=== PATIENT | male | born 1985 | race African-American/Black ===

== ENCOUNTER 2017-07-17 15:53 | Emergency (ER) | payer SELFPAY ==
[2017-07-17] MEDS: DIPHTH,PERTUSS(ACELL),TET TOX 0.5 ML DISP.SYRIN. VAX IM (16:38)
== END 2017-07-17 16:45 | disposition home or self-care (01) ==
LOC: ER 15:53
DX: S00.462A Insect bite (nonvenomous) of left ear, initial encounter (principal); Z91.018 Allergy to other foods; W57.XXXA Bitten or stung by nonvenomous insect and other nonvenomous arthropods, initial encounter; Y93.89 Activity, other specified; Y92.89 Other specified places as the place of occurrence of the external cause; Y99.8 Other external cause status
CPT/HCPCS: 90471; 90715; 99283

== ENCOUNTER 2018-09-24 13:08 | Emergency (ER) | payer BC ==
[~2018-09-24] VITALS: Ht 180.3 cm; Wt 107.0 kg
[~2018-09-24 13:08] MED LIST: CLIN300C8 PO; DIPH25CA58 PO; FAMO20TA5 PO; PRED50TA PO; TRAM50TA PO
--- NOTE | 2018-09-24 13:41 | PHYS DOC ---
Past Medical History Past Medical History: Gallstones Past Surgical History: Cholecystectomy Additional Past Surgical Histo: STOMACH SX Alcohol Use: Rarely Drug Use: None Adult General Chief Complaint Chief Complaint: ABDOMINAL PAIN HPI HPI Patient is a 33 year old male presents to the ED complaining of diffuse abdominal pain �4 days ago. Patient states he's had abdominal pain since last . Describes the pain as sharp. Rates the pain as 6 out of 10. States that he's had vomiting today at work. 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 States he was sent to the ED for further evaluation. History of cholecystectomy and colitis in the past. Denies diarrhea, constipation, fever, chest pain, shortness of breath, back pain or flank pain. Review of Systems Review of Systems Constitutional: Denies fever or chills [] Eyes: Denies change in visual acuity, redness, or eye pain [] HENT: Denies nasal congestion or sore throat [] Respiratory: Denies cough or shortness of breath [] Cardiovascular: No additional information not addressed in HPI [] GI: Complains of abdominal pain, nausea and vomiting. Denies bloody stools or diarrhea [] : Denies dysuria or hematuria [] Musculoskeletal: Denies back pain or joint pain [] Integument: Denies rash or skin lesions [] Neurologic: Denies headache, focal weakness or sensory changes [] All other systems were reviewed and found to be within normal limits, except as documented in this note. Current Medications Current Medications Current Medications Medications (Trade) Dose Ordered Sig/Yun Start Time Stop Time Status Last Admin Dose Admin Info (CONTRAST GIVEN -- Rx MONITORING) 1 each PRN DAILY PRN 09/24/18 14:30 09/26/18 14:29 Iohexol (Omnipaque 300 Mg/ml) 75 ml 1X ONCE 09/24/18 14:15 09/24/18 14:16 DC 09/24/18 14:49 75 ML Morphine Sulfate (Morphine Sulfate) 4 mg 1X ONCE 09/24/18 13:45 09/24/18 13:46 DC 09/24/18 13:52 4 MG Ondansetron HCl (Zofran) 4 mg 1X ONCE 09/24/18 13:45 09/24/18 13:46 DC 09/24/18 13:52 4 MG Allergies Allergies Allergies Coded Allergies Type Severity Reaction Last Updated Verified strawberry Allergy Intermediate 10/03/15 No Physical Exam Physical Exam Constitutional: Well developed, well nourished, no acute distress, non-toxic appearance. [] HENT: Normocephalic, atraumatic Neck: Normal range of motion, no tenderness, supple, no stridor. [] Cardiovascular:Heart rate regular rhythm, no murmur [] Lungs & Thorax: Bilateral breath sounds clear to auscultation [] Abdomen: Bowel sounds normal, soft, mild diffuse abdominal tenderness, no masses, no pulsatile masses. [] Skin: Warm, dry, no erythema, no rash. [] Back: No tenderness, no CVA tenderness. [] Extremities: No tenderness, no cyanosis, no clubbing, ROM intact, no edema. [] Neurologic: Alert and oriented X 3, normal motor function, normal sensory function, no focal deficits noted. [] Psychologic: Affect normal, judgement normal, mood normal. [] Current Patient Data Vital Signs Vital Signs Date Time Temp Pulse Resp B/P (MAP) Pulse Ox O2 Delivery O2 Flow Rate FiO2 09/24/18 16:17 84 16 141/85 (103) 97 Room Air 09/24/18 13:08 97.2 97.2 Lab Values Laboratory Tests Test 09/24/18 13:50 White Blood Count 8.0 x10^3/uL (4.0-11.0) Red Blood Count 5.64 x10^6/uL (4.30-5.70) Hemoglobin 15.5 g/dL (13.0-17.5) Hematocrit 46.5 % (39.0-53.0) Mean Corpuscular Volume 82 fL (79-100) Mean Corpuscular Hemoglobin 27 pg (25-35) Mean Corpuscular Hemoglobin Concent 33 g/dL (31-37) Red Cell Distribution Width 18.0 % (11.5-14.5) H Platelet Count 218 x10^3/uL (140-400) Neutrophils (%) (Auto) 61 % (31-73) Lymphocytes (%) (Auto) 27 % (24-48) Monocytes (%) (Auto) 8 % (0-9) Eosinophils (%) (Auto) 3 % (0-3) Basophils (%) (Auto) 0 % (0-3) Neutrophils # (Auto) 4.9 x10^3/uL (1.8-7.7) Lymphocytes # (Auto) 2.1 x10^3/uL (1.0-4.8) Monocytes # (Auto) 0.7 x10^3/uL (0.0-1.1) Eosinophils # (Auto) 0.3 x10^3/uL (0.0-0.7) Basophils # (Auto) 0.0 x10^3/uL (0.0-0.2) Sodium Level 144 mmol/L (136-145) Potassium Level 3.7 mmol/L (3.5-5.1) Chloride Level 107 mmol/L (98-107) Carbon Dioxide Level 27 mmol/L (21-32) Anion Gap 10 (6-14) Blood Urea Nitrogen 11 mg/dL (8-26) Creatinine 1.2 mg/dL (0.7-1.3) Estimated GFR (Cockcroft-Gault) 84.4 BUN/Creatinine Ratio 9 (6-20) Glucose Level 97 mg/dL (70-99) Calcium Level 8.9 mg/dL (8.5-10.1) Total Bilirubin 0.4 mg/dL (0.2-1.0) Aspartate Amino Transferase (AST) 27 U/L (15-37) Alanine Aminotransferase (ALT) 71 U/L (16-63) H Alkaline Phosphatase 71 U/L (46-116) Total Protein 7.5 g/dL (6.4-8.2) Albumin 3.8 g/dL (3.4-5.0) Albumin/Globulin Ratio 1.0 (1.0-1.7) Lipase 80 U/L (73-393) Laboratory Tests 09/24/18 13:50 Laboratory Tests 09/24/18 13:50 EKG EKG [] Radiology/Procedures Radiology/Procedures []PROCEDURE: CT ABD PELV W/ IV CONTRST ONLY CT study abdomen and pelvis with contrast Clinical indications: Diffuse abdominal pain. TECHNIQUE: After IV infusion of 75 cc of Omnipaque 300, helical CT scanning of the abdomen and pelvis was performed. No GI contrast was administered. This may decrease the sensitivity to detect GI tract pathology. PQRS compliance Statement One or more of the following individualized dose reduction techniques were utilized for this study: 1. Automated exposure control 2. Adjustment of the mA and/or kV according to patient size 3. Use of iterative reconstruction technique COMPARISON: None available. FINDINGS: The liver and spleen and pancreas are normal. The gallbladder surgically absent. No extra hepatic biliary ductal dilatation is seen. No adrenal mass is evident. Nonobstructing stone of the lower pole of the right kidney is seen measuring 3 mm. No hydronephrosis or hydroureter or ureteral stone or renal mass is seen. No focal aneurysmal dilatation of the abdominal aorta is seen. No enlarged abdominal or pelvic lymphadenopathy is evident. Urinary bladder is not abnormally distended. The appendix and terminal ileum are unremarkable. No obstructive bowel pattern is evident. There is mild wall thickening of small bowel and colon which may be seen with enterocolitis. No pneumatosis intestinalis is seen. No lung base consolidation is evident. No lytic process is seen. IMPRESSION: There is mild wall thickening of the small bowel and colon which may be seen with enterocolitis if there are clinical findings of such. No other acute abnormality of the abdomen or pelvis. Course & Med Decision Making Course & Med Decision Making Pertinent Labs and Imaging studies reviewed. (See chart for details) []Discussed lab and imaging findings with patient. Patient has a history of colitis and states it was self limiting in the past. Patient's pain improved in the ED. On reexamination, abdomen is soft nontender nondistended. No peritoneal signs. Tolerating by mouth. Discussed symptomatic treatment and follow-up with Danny Clay this week. Provided contact information/education. Discussed reasons to return to the ED. Patient understands and agrees with plan. Dragon Disclaimer Dragon Disclaimer This electronic medical record was generated, in whole or in part, using a voice recognition dictation system. Departure Departure Impression: Primary Impression: Enterocolitis Disposition: 01 HOME, SELF-CARE Condition: IMPROVED Referrals: NO PCP (PCP) DEMETRA GUZMÁN MD Patient Instructions: Colitis Scripts Dicyclomine Hcl (DICYCLOMINE HCL) 10 Mg Capsule 1 CAP PO TID, #10 CAP 0 Refills Prov: JULIET JACOBSON 09/24/18 Ondansetron Hcl (ZOFRAN) 4 Mg Tablet 1 TAB PO Q6HRS, #20 TAB Prov: JULIET JACOBSON 09/24/18 JULIET JACOBSON Sep 24, 2018 13:41
[2018-09-24] MEDS ORDERED: MORPHINE SULFATE 4 MG/ML VIAL. IV ONE (13:45)
[2018-09-24] MEDS ORDERED: ONDANSETRON PF 4 MG/2 ML VIAL. IV ONE (13:45)
[2018-09-24 13:55] LABS: BASO % 0 % (0-3); EOS # 0.3 x10^3/uL (0.0-0.7); EOS % 3 % (0-3); HEMATOCRIT 46.5 % (39.0-53.0); HEMOGLOBIN 15.5 g/dL (13.0-17.5); LYMPH # 2.1 x10^3/uL (1.0-4.8); LYMPH % 27 % (24-48); MEAN CORPUSCULAR HEMOGLOBIN 27 pg (25-35); MEAN CORPUSCULAR HGB CONC 33 g/dL (31-37); MEAN CORPUSCULAR VOLUME 82 fL (79-100); MONO # 0.7 x10^3/uL (0.0-1.1); MONO % 8 % (0-9); NEUT # 4.9 x10^3/uL (1.8-7.7); NEUT % 61 % (31-73); PLATELET COUNT 218 x10^3/uL (140-400); RED BLOOD COUNT 5.64 x10^6/uL (4.30-5.70)
[2018-09-24 14:09] LABS: CALCIUM 8.9 mg/dL (8.5-10.1); CREATININE 1.2 mg/dL (0.7-1.3); GFR 84.4; POTASSIUM 3.7 mmol/L (3.5-5.1)
[2018-09-24 14:15] LABS: ALBUMIN 3.8 g/dL (3.4-5.0); TOTAL BILIRUBIN 0.4 mg/dL (0.2-1.0); TOTAL PROTEIN 7.5 g/dL (6.4-8.2)
[2018-09-24] MEDS ORDERED: IOHEXOL 300 MG/ML 100ML VIAL. IV ONE (14:15)
[2018-09-24] MEDS ORDERED: CONTRAST GIVEN. MC PRN (14:30)
--- NOTE | 2018-09-24 15:29 | RAD ---
CT study abdomen and pelvis with contrast Clinical indications: Diffuse abdominal pain. TECHNIQUE: After IV infusion of 75 cc of Omnipaque 300, helical CT scanning of the abdomen and pelvis was performed. No GI contrast was administered. This may decrease the sensitivity to detect GI tract pathology. PQRS compliance Statement One or more of the following individualized dose reduction techniques were utilized for this study: 1. Automated exposure control 2. Adjustment of the mA and/or kV according to patient size 3. Use of iterative reconstruction technique COMPARISON: None available. FINDINGS: The liver and spleen and pancreas are normal. The gallbladder surgically absent. No extra hepatic biliary ductal dilatation is seen. No adrenal mass is evident. Nonobstructing stone of the lower pole of the right kidney is seen measuring 3 mm. No hydronephrosis or hydroureter or ureteral stone or renal mass is seen. No focal aneurysmal dilatation of the abdominal aorta is seen. No enlarged abdominal or pelvic lymphadenopathy is evident. Urinary bladder is not abnormally distended. The appendix and terminal ileum are unremarkable. No obstructive bowel pattern is evident. There is mild wall thickening of small bowel and colon which may be seen with enterocolitis. No pneumatosis intestinalis is seen. No lung base consolidation is evident. No lytic process is seen. IMPRESSION: There is mild wall thickening of the small bowel and colon which may be seen with enterocolitis if there are clinical findings of such. No other acute abnormality of the abdomen or pelvis. Electronically signed by: Kyrie Sagastume MD (09/24/2018 3:26 PM) [facility]
[2018-09-24 16:17] VITALS: BP 141/85
[2018-09-24] MEDS ORDERED: ONDA4TAB7 PO (16:43)
[2018-09-24] MEDS ORDERED: DICY10CA3 PO (16:43)
== END 2018-09-24 16:51 | disposition home or self-care (01) ==
LOC: ER 13:08
DX: K52.9 Noninfective gastroenteritis and colitis, unspecified (principal); Z90.49 Acquired absence of other specified parts of digestive tract; Z91.018 Allergy to other foods
CPT/HCPCS: 36415; 74177; 80053; 83690; 85025; 96374; 96375; 99285; J2270; J2405; Q9967

== ENCOUNTER → 2018-10-22 | Day surgery (SDC) | payer BC ==
[~2018-10-22] MED LIST changes: +DICY10CA3 PO; +IV RINGERS,LACTATED 1000ML 1,000 ML IV ONE; +ONDA4TAB7 PO; +PROPOFOL 20 ML IV ONE
--- NOTE | 2018-10-22 14:30 | PDOC4 ---
PROCEDURE Procedure EGD/biopsies Indication: Epigastric pain Meds: per anesthesia Findings: E--Grade A reflux at 42 cm. G--Pyloric deformity. Mostly-healed benign ulcer in pre-pyloric area atop fold. Biopsies re: H.pylori. D--Normal to second portion Paz. well. IMP: ,nearly healed. Mild reflux. REC: PPI daily Await path. Resume other meds, diet. F/u in 2 weeks. DAKOTA LAWRENCE MD Oct 22, 2018 14:30
[2018-10-22 15:04] VITALS: BP 106/58
--- NOTE | 2018-10-24 13:08 | PATHOLOGY ---
[facility] Accession Number: [id number] . 01 Material submitted: . stomach - ANTRAL BX . 01 Clinical history: . Abnormal CT, abdominal pain . 02 Diagnosis: Gastric biopsy, antrum: - Active chronic gastritis, moderate to marked, with Helicobacter organisms identified. (JPM:layne; 10/24/2018) S 10/24/2018 0855 Local . 02 Comment: Sections of the gastric antral biopsy show moderate to marked active chronic inflammation. A properly controlled immunoperoxidase stain for Helicobacter reveals numerous Helicobacter organisms. There is no evidence of malignancy. (JPM:layne; 10/24/2018) . . Special stain performed: Immunoperoxidase stain for Helicobacter . 02 Electronically signed: . Reed Degroot MD, Pathologist NPI- [id number] . 01 Gross description: . The specimen is received in formalin, labeled "Dakota Zhao, antral biopsy". Received is a segment of pale lezama soft tissue measuring 0.5 cm in maximum dimensions. The specimen is submitted entirely in cassette A1. ([facility]; 10/23/2018) QA/QA 10/23/2018 1752 Local . 02 Pathologist provided ICD-10: K29.50, B96.81 . 02 CPT . 938290, P35806 Specimen Comment: A courtesy copy of this report has been sent to Specimen Comment: [phone], . Specimen Comment: Report sent to / DR CARTER Performed at: 01 [facility] [address], [place], [place] [id number] MD Gustavo Fiore MD Phone: [phone] Performed at: 02 [facility] [address] [place], [place] [id number] MD Reed Degroot MD Phone: [phone]
== END | disposition home or self-care (01) ==
LOC: SURG 13:30
PROVIDERS: ATTEND Internal Medicine Gastroenterology
DX: K29.30 Chronic superficial gastritis without bleeding (principal); B96.81 Helicobacter pylori [H. pylori] as the cause of diseases classified elsewhere; K21.0 Gastro-esophageal reflux disease with esophagitis; Z79.899 Other long term (current) drug therapy; Z91.018 Allergy to other foods; Z90.49 Acquired absence of other specified parts of digestive tract
CPT/HCPCS: 43239; 88305; 88342; J2704

== ENCOUNTER 2018-12-29 17:00 | Emergency (ER) | payer BC ==
[~2018-12-29] VITALS: Ht 180.3 cm; Wt 115.7 kg
[~2018-12-29 17:00] MED LIST changes: -IV RINGERS,LACTATED 1000ML 1,000 ML IV ONE; -PROPOFOL 20 ML IV ONE
[2018-12-29] MEDS ORDERED: methylPREDNISolone SOD SUCC PF 125 MG/2 ML VIAL. IV STA (17:43)
--- NOTE | 2018-12-29 17:47 | PHYS DOC ---
Past Medical History Past Medical History: No Pertinent History Past Surgical History: Cholecystectomy Additional Past Surgical Histo: STOMACH SX Alcohol Use: Rarely Drug Use: None Adult General Chief Complaint Chief Complaint: SORE THROAT HPI HPI Patient is a 33 year old year old male presents to the ER with left sided face pain and sore throat that started last night he states she's been having sore throat for a couple days. Pain as 7 out of 10 in severity and sharp. States is difficult to swallow. Review of Systems Review of Systems Constitutional: Denies fever or chills [] Eyes: Denies change in visual acuity, redness, or eye pain [] HENT: Reports sore throat Respiratory: Denies cough or shortness of breath [] Cardiovascular: No additional information not addressed in HPI [] GI: Denies abdominal pain, nausea, vomiting, bloody stools or diarrhea [] : Denies dysuria or hematuria [] Musculoskeletal: Denies back pain or joint pain [] Integument: Denies rash or skin lesions [] Neurologic: Denies headache, focal weakness or sensory changes [] Endocrine: Denies polyuria or polydipsia [] Complete systems were reviewed and found to be within normal limits, except as documented in this note. Current Medications Current Medications Current Medications Medications (Trade) Dose Ordered Sig/Yun Start Time Stop Time Status Last Admin Dose Admin Clindamycin Phosphate 50 ml @ 100 mls/hr 1X STAT 12/29/18 19:32 12/29/18 20:01 Info (CONTRAST GIVEN -- Rx MONITORING) 1 each PRN DAILY PRN 12/29/18 18:15 12/31/18 18:14 Iohexol (Omnipaque 300 Mg/ml) 70 ml 1X ONCE 12/29/18 18:15 12/29/18 18:16 DC 12/29/18 18:43 70 ML Methylprednisolone Sodium Succinate (SOLU-Medrol 125MG VIAL) 125 mg 1X STAT 12/29/18 17:43 12/29/18 17:47 DC 12/29/18 18:15 125 MG Morphine Sulfate (Morphine Sulfate) 5 mg 1X ONCE 12/29/18 18:30 12/29/18 18:31 DC 12/29/18 18:32 5 MG Sodium Chloride 1,000 ml @ 1,000 mls/hr 1X STAT 12/29/18 19:48 12/29/18 20:47 UNV Allergies Allergies Allergies Coded Allergies Type Severity Reaction Last Updated Verified strawberry Allergy Intermediate 10/22/18 No Physical Exam Physical Exam Constitutional: Well developed, well nourished, no acute distress, non-toxic appearance. [] HENT: Normocephalic, atraumatic, bilateral external ears normal, oropharynx moist, unable to visualize back of throat, nose normal, patient unable to open mouth fully. Eyes: PERRLA, EOMI, conjunctiva normal, no discharge. [] Neck: Normal range of motion, tenderness L side. Cardiovascular:Heart rate regular rhythm, no murmur [] Lungs & Thorax: Bilateral breath sounds clear to auscultation [] Abdomen: Bowel sounds normal, soft, no tenderness, no masses, no pulsatile masses. [] Skin: Warm, dry, no erythema, no rash. [] Back: No tenderness, no CVA tenderness. [] Extremities: No tenderness, no cyanosis, no clubbing, ROM intact, no edema. [] Neurologic: Alert and oriented X 3, normal motor function, normal sensory function, no focal deficits noted. [] Psychologic: Affect normal, judgement normal, mood normal. [] Current Patient Data Vital Signs Vital Signs Date Time Temp Pulse Resp B/P (MAP) Pulse Ox O2 Delivery O2 Flow Rate FiO2 12/29/18 17:37 98.5 96 18 138/93 (108) 99 Room Air 98.5 Lab Values Laboratory Tests Test 12/29/18 18:00 White Blood Count 11.6 x10^3/uL (4.0-11.0) H Red Blood Count 5.62 x10^6/uL (4.30-5.70) Hemoglobin 15.0 g/dL (13.0-17.5) Hematocrit 45.1 % (39.0-53.0) Mean Corpuscular Volume 80 fL (79-100) Mean Corpuscular Hemoglobin 27 pg (25-35) Mean Corpuscular Hemoglobin Concent 33 g/dL (31-37) Red Cell Distribution Width 17.7 % (11.5-14.5) H Platelet Count 224 x10^3/uL (140-400) Neutrophils (%) (Auto) 58 % (31-73) Lymphocytes (%) (Auto) 27 % (24-48) Monocytes (%) (Auto) 11 % (0-9) H Eosinophils (%) (Auto) 3 % (0-3) Basophils (%) (Auto) 1 % (0-3) Neutrophils # (Auto) 6.7 x10^3/uL (1.8-7.7) Lymphocytes # (Auto) 3.2 x10^3/uL (1.0-4.8) Monocytes # (Auto) 1.3 x10^3/uL (0.0-1.1) H Eosinophils # (Auto) 0.4 x10^3/uL (0.0-0.7) Basophils # (Auto) 0.1 x10^3/uL (0.0-0.2) Sodium Level 140 mmol/L (136-145) Potassium Level 3.9 mmol/L (3.5-5.1) Chloride Level 105 mmol/L (98-107) Carbon Dioxide Level 26 mmol/L (21-32) Anion Gap 9 (6-14) Blood Urea Nitrogen 10 mg/dL (8-26) Creatinine 1.0 mg/dL (0.7-1.3) Estimated GFR (Cockcroft-Gault) 104.1 BUN/Creatinine Ratio 10 (6-20) Glucose Level 81 mg/dL (70-99) Calcium Level 9.2 mg/dL (8.5-10.1) Total Bilirubin 0.5 mg/dL (0.2-1.0) Aspartate Amino Transferase (AST) 31 U/L (15-37) Alanine Aminotransferase (ALT) 64 U/L (16-63) H Alkaline Phosphatase 73 U/L (46-116) C-Reactive Protein, Quantitative 33.2 mg/L (0-3.3) H Total Protein 7.9 g/dL (6.4-8.2) Albumin 3.8 g/dL (3.4-5.0) Albumin/Globulin Ratio 0.9 (1.0-1.7) L Laboratory Tests 12/29/18 18:00 Laboratory Tests 12/29/18 18:00 EKG EKG [] Radiology/Procedures Radiology/Procedures [][facility] [address] [place] [address] IMAGING REPORT Signed PATIENT: DAKOTA JAVIER LACCOUNT: [id number] : 1985 LOCATION: ER AGE: 33 SEX: M EXAM STATUS: REG ER ORD. PHYSICIAN: DAKOTA GARAY APRN REASON: sore throat, L sided neck swelling, concern for tonsillar abscess PROCEDURE: CT SOFT TISSUE NECK W/CONTRAST Exam: CT neck with contrast INDICATION: Sore throat, left-sided neck swelling TECHNIQUE: Sequential axial images through the neck obtained following the administration of 70 mL of Omni 300 IV contrast. Sagittal and coronal reformatted images were reconstructed from the axial data and reviewed. Comparisons: None FINDINGS: Visualized intracranial structures are unremarkable. Visualized portions of the paranasal sinuses and mastoid air cells are well-pneumatized. Cervical vasculature is patent. There is enlargement of the palatine tonsils bilaterally. There is a 1.0 cm hypoattenuating fluid collection with peripheral enhancement along the anterior aspect of the left palatine tonsil. There is effacement of the left oropharyngeal airway secondary to edema. Parapharyngeal edema is noted predominantly throughout the left neck surrounding the lingula and palatine tonsils. Visualized portions of the thyroid are unremarkable. Salivary glands are within normal limits. Several prominent and mildly enlarged upper cervical lymph nodes are noted bilaterally, larger on the left. Visualized lung apices are clear. No suspicious osseous lesions or acute fractures. IMPRESSION: 1. Enlargement of the palatine tonsils bilaterally greater on the left with a 1.0 cm hypoattenuating peripherally enhancing fluid collection at the anterior aspect of the left down to the tonsil favored represent peritonsillar abscess, seen best on series 2 image 56. 2. Several prominent bilateral upper cervical lymph nodes, likely reactive to the above process. Exposure: One or more of the following in the visualized dose reduction techniques were utilized for this examination: 1. Automated exposure control 2. Adjustment of the MA and/or KV according to patient size 3. Use of iterative of reconstructive technique Electronically signed by: Lili Mary MD (12/29/2018 7:16 PM) [id number] DICTATED and SIGNED BY: LILI MARY MD DATE: 12/29/181915 Course & Med Decision Making Course & Med Decision Making Pertinent Labs and Imaging studies reviewed. (See chart for details) Concern for abscess. Will get labs, CT, and steroids. CT shows 1.0 cm left peritonsiller abscess. Will order clindamycin. Discussed with patient who agrees to Transfer as we do not have ENT at [facility]. He request [facility]. Discussed with transfer center at 1944. [facility] transfer called back at [address] Shady De La Vega for an ED to ED transfer. Dragon Disclaimer Dragon Disclaimer This electronic medical record was generated, in whole or in part, using a voice recognition dictation system. Departure Departure Impression: Primary Impression: Peritonsillar abscess Disposition: 05 TRANSFER OTHER ([facility]) Condition: STABLE Referrals: FEROZ CARTER MD (PCP) DAKOTA GARAY APRN Dec 29, 2018 17:47
[2018-12-29 18:07] LABS: BASO # 0.1 x10^3/uL (0.0-0.2); BASO % 1 % (0-3); EOS # 0.4 x10^3/uL (0.0-0.7); EOS % 3 % (0-3); HEMATOCRIT 45.1 % (39.0-53.0); LYMPH # 3.2 x10^3/uL (1.0-4.8); LYMPH % 27 % (24-48); MEAN CORPUSCULAR HEMOGLOBIN 27 pg (25-35); MEAN CORPUSCULAR HGB CONC 33 g/dL (31-37); MEAN CORPUSCULAR VOLUME 80 fL (79-100); MONO # 1.3 x10^3/uL (0.0-1.1); MONO % 11 % (0-9); NEUT # 6.7 x10^3/uL (1.8-7.7); NEUT % 58 % (31-73); PLATELET COUNT 224 x10^3/uL (140-400); RED BLOOD COUNT 5.62 x10^6/uL (4.30-5.70); RED CELL DISTRIBUTION WIDTH 17.7 % (11.5-14.5); WHITE BLOOD COUNT 11.6 x10^3/uL (4.0-11.0)
[2018-12-29] MEDS ORDERED: CONTRAST GIVEN. MC PRN (18:15)
[2018-12-29] MEDS ORDERED: IOHEXOL 300 MG/ML 100ML VIAL. IV ONE (18:15)
[2018-12-29 18:16] LABS: CALCIUM 9.2 mg/dL (8.5-10.1); GFR 104.1; POTASSIUM 3.9 mmol/L (3.5-5.1)
[2018-12-29 18:22] LABS: ALBUMIN 3.8 g/dL (3.4-5.0); ALBUMIN/GLOBULIN RATIO 0.9 (1.0-1.7); C-REACTIVE PROTEIN 33.2 mg/L (0-3.3); TOTAL BILIRUBIN 0.5 mg/dL (0.2-1.0); TOTAL PROTEIN 7.9 g/dL (6.4-8.2)
[2018-12-29] MEDS ORDERED: MORPHINE SULFATE 10 MG/ML VIAL. IV ONE ×3 (18:30→20:08)
--- NOTE | 2018-12-29 19:18 | RAD ---
Exam: CT neck with contrast INDICATION: Sore throat, left-sided neck swelling TECHNIQUE: Sequential axial images through the neck obtained following the administration of 70 mL of Omni 300 IV contrast. Sagittal and coronal reformatted images were reconstructed from the axial data and reviewed. Comparisons: None FINDINGS: Visualized intracranial structures are unremarkable. Visualized portions of the paranasal sinuses and mastoid air cells are well-pneumatized. Cervical vasculature is patent. There is enlargement of the palatine tonsils bilaterally. There is a 1.0 cm hypoattenuating fluid collection with peripheral enhancement along the anterior aspect of the left palatine tonsil. There is effacement of the left oropharyngeal airway secondary to edema. Parapharyngeal edema is noted predominantly throughout the left neck surrounding the lingula and palatine tonsils. Visualized portions of the thyroid are unremarkable. Salivary glands are within normal limits. Several prominent and mildly enlarged upper cervical lymph nodes are noted bilaterally, larger on the left. Visualized lung apices are clear. No suspicious osseous lesions or acute fractures. IMPRESSION: 1. Enlargement of the palatine tonsils bilaterally greater on the left with a 1.0 cm hypoattenuating peripherally enhancing fluid collection at the anterior aspect of the left down to the tonsil favored represent peritonsillar abscess, seen best on series 2 image 56. 2. Several prominent bilateral upper cervical lymph nodes, likely reactive to the above process. Exposure: One or more of the following in the visualized dose reduction techniques were utilized for this examination: 1. Automated exposure control 2. Adjustment of the MA and/or KV according to patient size 3. Use of iterative of reconstructive technique Electronically signed by: Lili Yen MD (12/29/2018 7:16 PM) [facility]
[2018-12-29] MEDS ORDERED: CLINDAMYCIN 600MG PREMIX 50 ML IV STA (19:32)
[2018-12-29] MEDS ORDERED: IV NORMAL SALINE 1000ML BAG 1,000 ML IV STA (19:48)
[2018-12-29 20:30] VITALS: BP 144/76
== END 2018-12-29 21:31 | disposition short-term general hospital (02) ==
LOC: ER 17:00
DX: J36 Peritonsillar abscess (principal); Z79.899 Other long term (current) drug therapy; Z90.49 Acquired absence of other specified parts of digestive tract
CPT/HCPCS: 36415; 70491; 80053; 85025; 86140; 96374; 96375; 96376; 99285; J2270; J2930; J7030; Q9967

== ENCOUNTER 2019-04-27 07:31 | Inpatient (IN) | payer BC ==
[2019-04-27] VITALS (17 sets, daily range): BP systolic 97–193; BP diastolic 60–108
[~2019-04-27] VITALS: Ht 180.3 cm; Wt 108.2 kg
[2019-04-27] MEDS ORDERED: HEPARIN for IV BOLUS 10,000 UNIT/10 ML VIAL. ONE ×3 (07:45→12:08)
[2019-04-27] MEDS ORDERED: fentaNYL PF VIAL 100 MCG/2 ML VIAL ONE ×2 (08:09→11:14)
--- NOTE | 2019-04-27 11:00 | NUR ---
Nursing: Pt to ICU pby bed from cath laboratory technician. IABP in place at right groin. Site with small amount of blood on dressing, 3+ pedal pulse, right foot warm to touch. Pt oriented to ICU. Placed on monitor. Denies pain. Instructed pt to lay flat and not bend right leg. Pt acknowledges understanding. Will continue to monitor closely
--- NOTE | 2019-04-27 11:00 | NUR ---
Pt c/o tongue being swollen. Upon inspection, blood noted to be on tongue and teeth as if he bit his tongue. Explained to patient this probably happened when he was defibrillated in medical laboratory scientist. Addendum: 04/28/19 at 1142 by JOHN SALAMANCA RN RN Amended: Links added.
[2019-04-27] MEDS ORDERED: MIDAZOLAM HCL/PF 5 MG/5 ML VIAL. ONE (11:14)
[2019-04-27] MEDS ORDERED: DEXTROSE 5% IV ONE (11:15)
[2019-04-27] MEDS ORDERED: AMIODARONE IV ONE (11:15)
[2019-04-27] MEDS ORDERED: LIDOCAINE 1% Multi-Dose 20 ML VIAL. ONE (11:16)
[2019-04-27] MEDS ORDERED: IODIXANOL 320 MG/ML 100 ML VIAL. ONE (11:16)
[2019-04-27] MEDS ORDERED: ASPIRIN 325 MG TABLET PO ONE (11:30)
[2019-04-27] MEDS ORDERED: NITROGLYCERIN PREMIX 250 ML IV ONE (11:30)
[2019-04-27] MEDS ORDERED: LIDOCAINE 1% Multi-Dose 20 ML VIAL. INJ ONE (11:30)
[2019-04-27] MEDS ORDERED: TICAGRELOR 90 MG TABLET. PO ONE (11:30)
[2019-04-27] MEDS ORDERED: BIVALIRUDIN 250 MG VIAL. IV ONE ×2 (11:30→11:45)
[2019-04-27] MEDS ORDERED: HEPARIN 25,000UTS/250ML PREMIX 250 ML IV PRN (11:30)
[2019-04-27] MEDS ORDERED: fentaNYL PF VIAL 100 MCG/2 ML VIAL IV ONE (11:30)
[2019-04-27] MEDS: AMIODARONE 450 MG in IV DEXTROSE 5% 250 ML IV PRN ×2 (11:30→18:00)
[2019-04-27] MEDS ORDERED: ONDANSETRON PF 4 MG/2 ML VIAL. IVP ONE (11:30)
[2019-04-27] MEDS ORDERED: IODIXANOL 320 MG/ML 100 ML VIAL. IART ONE (11:30)
[2019-04-27] MEDS ORDERED: MIDAZOLAM HCL/PF 5 MG/5 ML VIAL. IV ONE (11:30)
--- NOTE | 2019-04-27 11:41 | RAD ---
CHEST AP ONLY History: Chest pain Comparison: October 22, 2012 Findings: Low lung volumes. No consolidation or pleural effusion. Normal heart size. No pneumothorax. Impression: 1. No acute cardiopulmonary process. Electronically signed by: Sriram Dillard DO (04/27/2019 11:39 AM) [id number]
[2019-04-27] MEDS ORDERED: CONTRAST GIVEN. MC PRN (12:30)
--- NOTE | 2019-04-27 13:00 | NUR ---
Pt uncomfortable from laying flat in bed. Pt repositioned with wedges. Call to Dr. South for pain medication order.
[2019-04-27 13:12] LABS: PROTHROMBIN TIME PATIENT 11.4 SEC (11.7-14.0)
[2019-04-27 13:15] LABS: BASO # 0.1 x10^3/uL (0.0-0.2); BASO % 1 % (0-3); EOS # 0.2 x10^3/uL (0.0-0.7); EOS % 2 % (0-3); HEMATOCRIT 45.9 % (39.0-53.0); HEMOGLOBIN 15.1 g/dL (13.0-17.5); LYMPH # 5.6 x10^3/uL (1.0-4.8); LYMPH % 41 % (24-48); MEAN CORPUSCULAR HEMOGLOBIN 27 pg (25-35); MEAN CORPUSCULAR HGB CONC 33 g/dL (31-37); MEAN CORPUSCULAR VOLUME 81 fL (79-100); MONO % 7 % (0-9); NEUT # 6.9 x10^3/uL (1.8-7.7); NEUT % 50 % (31-73); PLATELET COUNT 275 x10^3/uL (140-400); RED BLOOD COUNT 5.64 x10^6/uL (4.30-5.70); WHITE BLOOD COUNT 13.9 x10^3/uL (4.0-11.0)
[2019-04-27 13:50] LABS: ALBUMIN 3.9 g/dL (3.4-5.0); CREATININE 0.9 mg/dL (0.7-1.3); DIRECT BILIRUBIN 0.1 mg/dL (0.0-0.2); GFR 116.9; TOTAL BILIRUBIN 0.2 mg/dL (0.2-1.0); TOTAL PROTEIN 7.5 g/dL (6.4-8.2)
[2019-04-27 13:51] LABS: POTASSIUM 3.2 mmol/L (3.5-5.1)
--- NOTE | 2019-04-27 14:31 | PDOC1 ---
History and Physical Date of Admission Date of Admission DATE: 04/27/19 TIME: 14:26 History of Present Illness History of Present Illness Mr. Zhao came in the AM with acute chest pain, cruishing and sudden chest pain EKG showed marked ST elevation on v1 to v3, EKG reviewed in ER with Dr. 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 Past Medical History Cardiovascular: HTN Family History Family History: Coronary Artery Disease (2 family members at young ages, fa ther OR at age 32) [facility] History: [facility], [facility], ) Social History ALCOHOL: social Drugs: None Current Problem List Problem List Problems Medical Problems: (1) STEMI (ST elevation myocardial infarction) Status: Acute Current Medications Current Medications Current Medications Amiodarone HCl 75 mg/Dextrose 51.5 ml @ 309 mls/hr 1X ONCE IV Last administered on 04/27/19at 11:15; Start 04/27/19 at 11:15; Stop 04/27/19 at 11:24; Status DC Amiodarone HCl 450 mg/Dextrose 259 ml @ 33 mls/hr CONT PRN IV SEE I/O RECORD Last administered on 04/27/19at 11:30; Start 04/27/19 at 11:15 Fentanyl Citrate (Fentanyl 2ml Vial) 100 mcg STK-MED ONCE .ROUTE ; Start 04/27/19 at 11:14; Stop 04/27/19 at 11:14; Status DC Midazolam HCl (Versed) 5 mg STK-MED ONCE .ROUTE ; Start 04/27/19 at 11:14; Stop 04/27/19 at 11:14; Status DC Iodixanol (Visipaque 320) 100 ml STK-MED ONCE .ROUTE ; Start 04/27/19 at 11:16; Stop 04/27/19 at 11:16; Status DC Lidocaine HCl (Lidocaine 1% 20ml Vial) 20 ml STK-MED ONCE .ROUTE ; Start 04/27/19 at 11:16; Stop 04/27/19 at 11:16; Status DC Heparin Sodium/ Sodium Chloride 1,000 ml @ As Directed STK-MED ONCE .ROUTE ; Start 04/27/19 at 11:16; Stop 04/27/19 at 11:17; Status DC Heparin Sodium/ Sodium Chloride (HEPARIN for ARTERIAL LINE FLUSH) 1,000 unit 1X ONCE IART Last administered on 04/27/19 11:30; Start 04/27/19 at 11:30; Stop 04/27/19 at 12:48; Status DC Heparin Sodium/ Sodium Chloride (HEPARIN for ARTERIAL LINE FLUSH) 1,000 unit 1X ONCE IART Last administered on 04/27/19at 11:30; Start 04/27/19 at 11:30; Stop 04/27/19 at 12:48; Status DC Midazolam HCl (Versed) 5 mg 1X ONCE IV Last administered on 04/27/19 08:34; Start 04/27/19 at 11:30; Stop 04/27/19 at 12:48; Status DC Fentanyl Citrate (Fentanyl 2ml Vial) 100 mcg 1X ONCE IV Last administered on 04/27/19 08:34; Start 04/27/19 at 11:30; Stop 04/27/19 at 12:48; Status DC Iodixanol (Visipaque 320) 100 ml 1X ONCE IART Last administered on 04/27/19 11:30; Start 04/27/19 at 11:30; Stop 04/27/19 at 12:48; Status DC Bivalirudin (Angiomax) 250 mg 1X ONCE IV Last administered on 04/27/19at 09:04; Start 04/27/19 at 11:30; Stop 04/27/19 at 12:48; Status DC Ticagrelor (Brilinta) 180 mg 1X ONCE PO Last administered on 04/27/19 11:30; Start 04/27/19 at 11:30; Stop 04/27/19 at 12:48; Status DC Aspirin (Finn Aspirin) 325 mg 1X ONCE PO Last administered on 04/27/19 11:30; Start 04/27/19 at 11:30; Stop 04/27/19 at 12:48; Status DC Lidocaine HCl (Lidocaine 1% 20ml Vial) 20 ml 1X ONCE INJ Last administered on 04/27/19 11:30; Start 04/27/19 at 11:30; Stop 04/27/19 at 12:48; Status DC Heparin Sodium (Porcine) (Heparin 5,000 Units/1,000ml NS) 5,000 unit 1X ONCE IV Last administered on 04/27/19at 10:30; Start 04/27/19 at 11:30; Stop 04/27/19 at 12:48; Status DC Nitroglycerin/ Dextrose 250 ml @ 0 mls/hr 1X ONCE IV Last administered on 04/27/19at 08:44; Start 04/27/19 at 11:30; Stop 04/27/19 at 12:48; Status DC Heparin Sodium/ Dextrose 250 ml @ 10 mls/hr CONT PRN IV SEE I/O RECORD Last administered on 04/27/19at 10:15; Start 04/27/19 at 11:30 Dopamine HCl/ Dextrose 250 ml @ 18.835 mls/ hr 1X ONCE IV Last administered on 04/27/19at 09:25; Start 04/27/19 at 11:30; Stop 04/28/19 at 00:46 Ondansetron HCl (Zofran) 4 mg 1X ONCE IVP Last administered on 04/27/19at 09:46; Start 04/27/19 at 11:30; Stop 04/27/19 at 12:48; Status DC Heparin Sodium (Porcine) (Heparin Sodium) 10,000 unit STK-MED ONCE .ROUTE ; Start 04/27/19 at 11:40; Stop 04/27/19 at 11:40; Status DC Bivalirudin (Angiomax) 250 mg 1X ONCE IV Last administered on 04/27/19at 09:40; Start 04/27/19 at 11:45; Stop 04/27/19 at 12:48; Status DC Heparin Sodium (Porcine) (Heparin Sodium) 10,000 unit STK-MED ONCE .ROUTE ; Start 04/27/19 at 12:08; Stop 04/27/19 at 12:08; Status DC Info (CONTRAST GIVEN -- Rx MONITORING) 1 each PRN DAILY PRN MC SEE COMMENTS; Start 04/27/19 at 12:30; Stop 04/29/19 at 12:29 Fentanyl Citrate (Fentanyl 2ml Vial) 25 mcg PRN Q4HRS PRN IV PAIN; Start 04/27/19 at 13:15 Active Scripts Active Reported No Known Medications Prior To Admisstion (Info) Each 1 Each MC NA Allergies Allergies: Coded Allergies: strawberry (Unverified Allergy, Intermediate, 10/22/18) ROS Review of System lethargic after cath, back pain, just got fentanyl for pain General: YES: Malaise Respiratory: No: Cough, Hemoptysis, Orthopnea, Pleuritic Pain, Shortness of breath, SOB with excertion, Sputum Changes, Stridor, Tachypnea, Wheezing, Other Cardiovascular: yes Chest Pain Gastrointestinal: No Nausea, No Vomiting, No Abdominal Pain, No Diarrhea, No Constipation, No Melena, No Hematochezia, No Other Genitourinary: No Dysuria, No Frequency, No Incontinence, No Hematuria, No Retention, No Discharge, No Urgency, No Pain, No Flank Pain, No Other, No , No , No , No , No , No , No Musculoskeletal: Yes Joint Stiffness Neurological: No Behavorial Changes, No Bowel/Bladder ControlChng, No Confusion, No Dizziness, No Gait Disturbance, No Headaches, No Impaired Coord/balance, No Memory Loss, No Numbness/Tingling, No Seizures, No Speech Problems, No Tremors, No Visual Changes, No Weakness, No Other Skin: Yes Dry Skin Physical Exam General: Cooperative, mild distress HEENT: PERRLA, EOMI Lungs: Clear to auscultation Heart: other (LVAD super loud) Abdomen: Normal bowel sounds (obese), Soft Extremities: No cyanosis, No edema Skin: No rashes, No significant lesion Neuro: Strength at 5/5 X4 ext, Normal tone, Sensation intact Psych/Mental Status: Mood NL Vitals Vitals Vital Signs Date Time Temp Pulse Resp B/P (MAP) Pulse Ox O2 Delivery O2 Flow Rate FiO2 04/27/19 12:30 101 20 106/70 (82) 96 Nasal Cannula 4.0 04/27/19 10:45 97.2 97.2 Labs Labs Laboratory Tests Test 04/27/19 07:40 04/27/19 07:45 White Blood Count 13.9 x10^3/uL (4.0-11.0) Red Blood Count 5.64 x10^6/uL (4.30-5.70) Hemoglobin 15.1 g/dL (13.0-17.5) Hematocrit 45.9 % (39.0-53.0) Mean Corpuscular Volume 81 fL (79-100) Mean Corpuscular Hemoglobin 27 pg (25-35) Mean Corpuscular Hemoglobin Concent 33 g/dL (31-37) Red Cell Distribution Width 18.0 % (11.5-14.5) Platelet Count 275 x10^3/uL (140-400) Neutrophils (%) (Auto) 50 % (31-73) Lymphocytes (%) (Auto) 41 % (24-48) Monocytes (%) (Auto) 7 % (0-9) Eosinophils (%) (Auto) 2 % (0-3) Basophils (%) (Auto) 1 % (0-3) Neutrophils # (Auto) 6.9 x10^3/uL (1.8-7.7) Lymphocytes # (Auto) 5.6 x10^3/uL (1.0-4.8) Monocytes # (Auto) 1.0 x10^3/uL (0.0-1.1) Eosinophils # (Auto) 0.2 x10^3/uL (0.0-0.7) Basophils # (Auto) 0.1 x10^3/uL (0.0-0.2) Prothrombin Time 11.4 SEC (11.7-14.0) Prothromb Time International Ratio 0.9 (0.8-1.1) Activated Partial Thromboplast Time 26 SEC (24-38) Sodium Level 145 mmol/L (136-145) Potassium Level 3.2 mmol/L (3.5-5.1) Chloride Level 105 mmol/L (98-107) Carbon Dioxide Level 24 mmol/L (21-32) Anion Gap 16 (6-14) Blood Urea Nitrogen 14 mg/dL (8-26) Creatinine 0.9 mg/dL (0.7-1.3) Estimated GFR (Cockcroft-Gault) 116.9 Glucose Level 140 mg/dL (70-99) Calcium Level 9.0 mg/dL (8.5-10.1) Total Bilirubin 0.2 mg/dL (0.2-1.0) Direct Bilirubin 0.1 mg/dL (0.0-0.2) Aspartate Amino Transf (AST/SGOT) 28 U/L (15-37) Alanine Aminotransferase (ALT/SGPT) 63 U/L (16-63) Alkaline Phosphatase 65 U/L (46-116) Troponin I Quantitative 0.076 ng/mL (0.000-0.055) Total Protein 7.5 g/dL (6.4-8.2) Albumin 3.9 g/dL (3.4-5.0) Laboratory Tests Test 04/27/19 07:40 04/27/19 07:45 White Blood Count 13.9 x10^3/uL (4.0-11.0) Red Blood Count 5.64 x10^6/uL (4.30-5.70) Hemoglobin 15.1 g/dL (13.0-17.5) Hematocrit 45.9 % (39.0-53.0) Mean Corpuscular Volume 81 fL (79-100) Mean Corpuscular Hemoglobin 27 pg (25-35) Mean Corpuscular Hemoglobin Concent 33 g/dL (31-37) Red Cell Distribution Width 18.0 % (11.5-14.5) Platelet Count 275 x10^3/uL (140-400) Neutrophils (%) (Auto) 50 % (31-73) Lymphocytes (%) (Auto) 41 % (24-48) Monocytes (%) (Auto) 7 % (0-9) Eosinophils (%) (Auto) 2 % (0-3) Basophils (%) (Auto) 1 % (0-3) Neutrophils # (Auto) 6.9 x10^3/uL (1.8-7.7) Lymphocytes # (Auto) 5.6 x10^3/uL (1.0-4.8) Monocytes # (Auto) 1.0 x10^3/uL (0.0-1.1) Eosinophils # (Auto) 0.2 x10^3/uL (0.0-0.7) Basophils # (Auto) 0.1 x10^3/uL (0.0-0.2) Prothrombin Time 11.4 SEC (11.7-14.0) Prothromb Time International Ratio 0.9 (0.8-1.1) Activated Partial Thromboplast Time 26 SEC (24-38) Sodium Level 145 mmol/L (136-145) Potassium Level 3.2 mmol/L (3.5-5.1) Chloride Level 105 mmol/L (98-107) Carbon Dioxide Level 24 mmol/L (21-32) Anion Gap 16 (6-14) Blood Urea Nitrogen 14 mg/dL (8-26) Creatinine 0.9 mg/dL (0.7-1.3) Estimated GFR (Cockcroft-Gault) 116.9 Glucose Level 140 mg/dL (70-99) Calcium Level 9.0 mg/dL (8.5-10.1) Total Bilirubin 0.2 mg/dL (0.2-1.0) Direct Bilirubin 0.1 mg/dL (0.0-0.2) Aspartate Amino Transf (AST/SGOT) 28 U/L (15-37) Alanine Aminotransferase (ALT/SGPT) 63 U/L (16-63) Alkaline Phosphatase 65 U/L (46-116) Troponin I Quantitative 0.076 ng/mL (0.000-0.055) Total Protein 7.5 g/dL (6.4-8.2) Albumin 3.9 g/dL (3.4-5.0) VTE Prophylaxis Ordered VTE Prophylaxis Devices: No VTE Pharmacological Prophylaxi: Yes Assessment/Plan Assessment/Plan STEMI LAD 100%, stented, on LVAD, cont care in ICU time > 38 minueSHINE Jenkins MD Apr 27, 2019 14:31
[2019-04-27] MEDS ORDERED: IV NORMAL SALINE 1000ML BAG 1,000 ML IV SCH (17:00)
[2019-04-27] MEDS: fentaNYL PF VIAL 100 MCG/2 ML VIAL IV PRN ×4 (17:24→21:42)
--- NOTE | 2019-04-27 22:15 | NUR ---
Dr South phoned unit, requesting update on pt. update given, new orders received and noted. will pass on in report, will continue to closely monitor.
--- NOTE | 2019-04-27 22:19 | EKG ---
[facility] [address] [place] [address] Test Date: 2019-04-27 Test Time: 07:56:10 Pat Name: DAKOTA JAVIER Department: Room: 112 1 Gender: M Clinical Documentation Nurse: : 1985 Requested By: PAO LOVING Order Number: [id number] Reading MD: Measurements Intervals [place] Rate: 90 P: 49 [place]: 154 QRS: 86 QRSD: 100 T: 40 QT: 368 QTc: 454 Interpretive Statements SINUS RHYTHM LEFT ATRIAL ABNORMALITY QRS(T) CONTOUR ABNORMALITY CONSIDER ANTEROSEPTAL INFARCT CONSIDER INFERIOR MYOCARDIAL DAMAGE ST-T ELEVATION, CONSIDER ACUTE ANTERIOR INFARCT ABNORMAL ECG RI6.01 No previous ECG available for comparison
--- NOTE | 2019-04-27 22:19 | EKG ---
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
[2019-04-28] VITALS (24 sets, daily range): BP systolic 103–163; BP diastolic 70–106
[2019-04-28] MEDS: fentaNYL PF VIAL 100 MCG/2 ML VIAL IV PRN ×2 (01:58→10:36)
[2019-04-28 06:52] LABS: ALBUMIN 3.3 g/dL (3.4-5.0); ALBUMIN/GLOBULIN RATIO 1.1 (1.0-1.7); CALCIUM 8.4 mg/dL (8.5-10.1); CREATININE 1.2 mg/dL (0.7-1.3); GFR 83.9; POTASSIUM 3.4 mmol/L (3.5-5.1); TOTAL BILIRUBIN 0.8 mg/dL (0.2-1.0); TOTAL PROTEIN 6.3 g/dL (6.4-8.2)
[2019-04-28 07:08] LABS: BASO # 0.1 x10^3/uL (0.0-0.2); BASO % 0 % (0-3); EOS % 0 % (0-3); HEMATOCRIT 43.2 % (39.0-53.0); HEMOGLOBIN 14.1 g/dL (13.0-17.5); LYMPH # 3.1 x10^3/uL (1.0-4.8); LYMPH % 20 % (24-48); MEAN CORPUSCULAR HEMOGLOBIN 27 pg (25-35); MEAN CORPUSCULAR HGB CONC 33 g/dL (31-37); MEAN CORPUSCULAR VOLUME 81 fL (79-100); MONO # 1.5 x10^3/uL (0.0-1.1); MONO % 10 % (0-9); NEUT # 10.7 x10^3/uL (1.8-7.7); NEUT % 69 % (31-73); PLATELET COUNT 177 x10^3/uL (140-400); RED BLOOD COUNT 5.31 x10^6/uL (4.30-5.70); RED CELL DISTRIBUTION WIDTH 17.8 % (11.5-14.5); WHITE BLOOD COUNT 15.5 x10^3/uL (4.0-11.0)
[2019-04-28 07:10] LABS: CHOLESTEROL/HDL RATIO 4.6
[2019-04-28] MEDS ORDERED: LIDOCAINE 2% 100 MG/5 ML SYRINGE. ONE (09:17)
[2019-04-28] MEDS ORDERED: LIDOCAINE 1% PF 30 ML VIAL. ONE (09:18)
--- NOTE | 2019-04-28 11:01 | NUR ---
Nursing note: IAPB removed by Dr. South. Manual pressure held with hemostasis achieved at 10am. Pt given 25mcg Fentenyl prior to procedure. Pt tolerated well. Right groin site soft with no bleeding. 2+ right pedal pulse. Patient cleaned and linens changed. Will monitor closely.
--- NOTE | 2019-04-28 11:47 | PDOC ---
PROGRESS NOTES Subjective Subjective Patient seen and examined He looks and feels better today. Objective Objective Vital Signs Date Time Temp Pulse Resp B/P (MAP) Pulse Ox O2 Delivery O2 Flow Rate FiO2 04/28/19 11:04 13 96 Room Air 2.0 04/28/19 11:00 80 135/92 (106) 04/28/19 07:00 98.7 98.7 Intake and Output 04/28/19 07:00 Intake Total 2495.5 ml Output Total 2595 ml Balance -99.5 ml Intake Oral 150 ml IV Total 2345.5 ml Output Urine Total 2595 ml Physical Exam Abdomen: Normal bowel sounds Heart: Regular rate Extremities: Normal pulses General: mild distress Lungs: Clear to auscultation Assessment Assessment Problems Medical Problems: (1) STEMI (ST elevation myocardial infarction) Status: Acute 1. STEMI. Large proximally occluded LAD opened yesterday with a 3.0 x 28 drug eluting stent. IABP placed. Has been stable overnight. Peak troponin of 2138. Continuing amio and baseline meds. Will remove IABP this morning. Discussed with the patient. ECHO. 2. HLD. Statin. Comment Review of Relevant I have reviewed the following items turner (where applicable) has been applied. Labs Laboratory Tests Test 04/27/19 07:40 04/27/19 07:45 04/27/19 14:05 04/28/19 06:20 White Blood Count 13.9 x10^3/uL (4.0-11.0) 15.5 x10^3/uL (4.0-11.0) Red Blood Count 5.64 x10^6/uL (4.30-5.70) 5.31 x10^6/uL (4.30-5.70) Hemoglobin 15.1 g/dL (13.0-17.5) 14.1 g/dL (13.0-17.5) Hematocrit 45.9 % (39.0-53.0) 43.2 % (39.0-53.0) Mean Corpuscular Volume 81 fL (79-100) 81 fL (79-100) Mean Corpuscular Hemoglobin 27 pg (25-35) 27 pg (25-35) Mean Corpuscular Hemoglobin Concent 33 g/dL (31-37) 33 g/dL (31-37) Red Cell Distribution Width 18.0 % (11.5-14.5) 17.8 % (11.5-14.5) Platelet Count 275 x10^3/uL (140-400) 177 x10^3/uL (140-400) Neutrophils (%) (Auto) 50 % (31-73) 69 % (31-73) Lymphocytes (%) (Auto) 41 % (24-48) 20 % (24-48) Monocytes (%) (Auto) 7 % (0-9) 10 % (0-9) Eosinophils (%) (Auto) 2 % (0-3) 0 % (0-3) Basophils (%) (Auto) 1 % (0-3) 0 % (0-3) Neutrophils # (Auto) 6.9 x10^3/uL (1.8-7.7) 10.7 x10^3/uL (1.8-7.7) Lymphocytes # (Auto) 5.6 x10^3/uL (1.0-4.8) 3.1 x10^3/uL (1.0-4.8) Monocytes # (Auto) 1.0 x10^3/uL (0.0-1.1) 1.5 x10^3/uL (0.0-1.1) Eosinophils # (Auto) 0.2 x10^3/uL (0.0-0.7) 0.0 x10^3/uL (0.0-0.7) Basophils # (Auto) 0.1 x10^3/uL (0.0-0.2) 0.1 x10^3/uL (0.0-0.2) Prothrombin Time 11.4 SEC (11.7-14.0) Prothromb Time International Ratio 0.9 (0.8-1.1) Activated Partial Thromboplast Time 26 SEC (24-38) Sodium Level 145 mmol/L (136-145) 142 mmol/L (136-145) Potassium Level 3.2 mmol/L (3.5-5.1) 3.4 mmol/L (3.5-5.1) Chloride Level 105 mmol/L (98-107) 108 mmol/L (98-107) Carbon Dioxide Level 24 mmol/L (21-32) 23 mmol/L (21-32) Anion Gap 16 (6-14) 11 (6-14) Blood Urea Nitrogen 14 mg/dL (8-26) 13 mg/dL (8-26) Creatinine 0.9 mg/dL (0.7-1.3) 1.2 mg/dL (0.7-1.3) Estimated GFR (Cockcroft-Gault) 116.9 83.9 Glucose Level 140 mg/dL (70-99) 116 mg/dL (70-99) Calcium Level 9.0 mg/dL (8.5-10.1) 8.4 mg/dL (8.5-10.1) Total Bilirubin 0.2 mg/dL (0.2-1.0) 0.8 mg/dL (0.2-1.0) Direct Bilirubin 0.1 mg/dL (0.0-0.2) Aspartate Amino Transf (AST/SGOT) 28 U/L (15-37) 578 U/L (15-37) Alanine Aminotransferase (ALT/SGPT) 63 U/L (16-63) 160 U/L (16-63) Alkaline Phosphatase 65 U/L (46-116) 62 U/L (46-116) Troponin I Quantitative 0.076 ng/mL (0.000-0.055) 2138.987 ng/mL (0.000-0.055) Total Protein 7.5 g/dL (6.4-8.2) 6.3 g/dL (6.4-8.2) Albumin 3.9 g/dL (3.4-5.0) 3.3 g/dL (3.4-5.0) Heparin Anti-Xa Act, Unfractionated 0.10 IU/mL (0.30-0.70) BUN/Creatinine Ratio 11 (6-20) Albumin/Globulin Ratio 1.1 (1.0-1.7) Triglycerides Level 183 mg/dL (0-150) Cholesterol Level 189 mg/dL (0-200) LDL Cholesterol, Calculated 111 mg/dL (0-100) VLDL Cholesterol, Calculated 37 mg/dL (0-40) Non-HDL Cholesterol Calculated 148 mg/dL (0-129) HDL Cholesterol 41 mg/dL (40-60) Cholesterol/HDL Ratio 4.6 Laboratory Tests Test 04/27/19 14:05 04/28/19 06:20 Heparin Anti-Xa Act, Unfractionated 0.10 IU/mL (0.30-0.70) White Blood Count 15.5 x10^3/uL (4.0-11.0) Red Blood Count 5.31 x10^6/uL (4.30-5.70) Hemoglobin 14.1 g/dL (13.0-17.5) Hematocrit 43.2 % (39.0-53.0) Mean Corpuscular Volume 81 fL (79-100) Mean Corpuscular Hemoglobin 27 pg (25-35) Mean Corpuscular Hemoglobin Concent 33 g/dL (31-37) Red Cell Distribution Width 17.8 % (11.5-14.5) Platelet Count 177 x10^3/uL (140-400) Neutrophils (%) (Auto) 69 % (31-73) Lymphocytes (%) (Auto) 20 % (24-48) Monocytes (%) (Auto) 10 % (0-9) Eosinophils (%) (Auto) 0 % (0-3) Basophils (%) (Auto) 0 % (0-3) Neutrophils # (Auto) 10.7 x10^3/uL (1.8-7.7) Lymphocytes # (Auto) 3.1 x10^3/uL (1.0-4.8) Monocytes # (Auto) 1.5 x10^3/uL (0.0-1.1) Eosinophils # (Auto) 0.0 x10^3/uL (0.0-0.7) Basophils # (Auto) 0.1 x10^3/uL (0.0-0.2) Sodium Level 142 mmol/L (136-145) Potassium Level 3.4 mmol/L (3.5-5.1) Chloride Level 108 mmol/L (98-107) Carbon Dioxide Level 23 mmol/L (21-32) Anion Gap 11 (6-14) Blood Urea Nitrogen 13 mg/dL (8-26) Creatinine 1.2 mg/dL (0.7-1.3) Estimated GFR (Cockcroft-Gault) 83.9 BUN/Creatinine Ratio 11 (6-20) Glucose Level 116 mg/dL (70-99) Calcium Level 8.4 mg/dL (8.5-10.1) Total Bilirubin 0.8 mg/dL (0.2-1.0) Aspartate Amino Transf (AST/SGOT) 578 U/L (15-37) Alanine Aminotransferase (ALT/SGPT) 160 U/L (16-63) Alkaline Phosphatase 62 U/L (46-116) Troponin I Quantitative 2138.987 ng/mL (0.000-0.055) Total Protein 6.3 g/dL (6.4-8.2) Albumin 3.3 g/dL (3.4-5.0) Albumin/Globulin Ratio 1.1 (1.0-1.7) Triglycerides Level 183 mg/dL (0-150) Cholesterol Level 189 mg/dL (0-200) LDL Cholesterol, Calculated 111 mg/dL (0-100) VLDL Cholesterol, Calculated 37 mg/dL (0-40) Non-HDL Cholesterol Calculated 148 mg/dL (0-129) HDL Cholesterol 41 mg/dL (40-60) Cholesterol/HDL Ratio 4.6 Medications Current Medications Amiodarone HCl 75 mg/Dextrose 51.5 ml @ 309 mls/hr 1X ONCE IV Last admi nistered on 04/27/19at 11:15; Start 04/27/19 at 11:15; Stop 04/27/19 at 11:24; Status DC Amiodarone HCl 450 mg/Dextrose 259 ml @ 33 mls/hr CONT PRN IV SEE I/O RECORD Last administered on 04/27/19at 18:00; Start 04/27/19 at 11:15; Stop 04/27/19 at 18:00; Status DC Fentanyl Citrate (Fentanyl 2ml Vial) 100 mcg STK-MED ONCE .ROUTE ; Start 04/27/19 at 11:14; Stop 04/27/19 at 11:14; Status DC Midazolam HCl (Versed) 5 mg STK-MED ONCE .ROUTE ; Start 04/27/19 at 11:14; Stop 04/27/19 at 11:14; Status DC Iodixanol (Visipaque 320) 100 ml STK-MED ONCE .ROUTE ; Start 04/27/19 at 11:16; Stop 04/27/19 at 11:16; Status DC Lidocaine HCl (Lidocaine 1% 20ml Vial) 20 ml STK-MED ONCE .ROUTE ; Start 3/14/20 at 11:16; Stop 04/27/19 at 11:16; Status DC Heparin Sodium/ Sodium Chloride 1,000 ml @ As Directed STK-MED ONCE .ROUTE ; Start 04/27/19 at 11:16; Stop 04/27/19 at 11:17; Status DC Heparin Sodium/ Sodium Chloride (HEPARIN for ARTERIAL LINE FLUSH) 1,000 unit 1X ONCE IART Last administered on 04/27/19at 11:30; Start 04/27/19 at 11:30; Stop 04/27/19 at 12:48; Status DC Heparin Sodium/ Sodium Chloride (HEPARIN for ARTERIAL LINE FLUSH) 1,000 unit 1X ONCE IART Last administered on 04/27/19 11:30; Start 04/27/19 at 11:30; Stop 04/27/19 at 12:48; Status DC Midazolam HCl (Versed) 5 mg 1X ONCE IV Last administered on 04/27/19 08:34; Start 04/27/19 at 11:30; Stop 04/27/19 at 12:48; Status DC Fentanyl Citrate (Fentanyl 2ml Vial) 100 mcg 1X ONCE IV Last administered on 04/27/19at 08:34; Start 04/27/19 at 11:30; Stop 04/27/19 at 12:48; Status DC Iodixanol (Visipaque 320) 100 ml 1X ONCE IART Last administered on 04/27/19 11:30; Start 04/27/19 at 11:30; Stop 04/27/19 at 12:48; Status DC Bivalirudin (Angiomax) 250 mg 1X ONCE IV Last administered on 04/27/19at 09:04; Start 04/27/19 at 11:30; Stop 04/27/19 at 12:48; Status DC Ticagrelor (Brilinta) 180 mg 1X ONCE PO Last administered on 04/27/19 11:30; Start 04/27/19 at 11:30; Stop 04/27/19 at 12:48; Status DC Aspirin (Finn Aspirin) 325 mg 1X ONCE PO Last administered on 04/27/19at 11:30; Start 04/27/19 at 11:30; Stop 04/27/19 at 12:48; Status DC Lidocaine HCl (Lidocaine 1% 20ml Vial) 20 ml 1X ONCE INJ Last administered on 04/27/19at 11:30; Start 04/27/19 at 11:30; Stop 04/27/19 at 12:48; Status DC Heparin Sodium (Porcine) (Heparin 5,000 Units/1,000ml NS) 5,000 unit 1X ONCE IV Last administered on 04/27/19at 10:30; Start 04/27/19 at 11:30; Stop 04/27/19 at 12:48; Status DC Nitroglycerin/ Dextrose 250 ml @ 0 mls/hr 1X ONCE IV Last administered on 04/27/19at 08:44; Start 04/27/19 at 11:30; Stop 04/27/19 at 12:48; Status DC Heparin Sodium/ Dextrose 250 ml @ 10 mls/hr CONT PRN IV SEE I/O RECORD Last administered on 04/27/19at 10:15; Start 04/27/19 at 11:30; Stop 04/28/19 at 03:00; Status DC Dopamine HCl/ Dextrose 250 ml @ 18.835 mls/ hr 1X ONCE IV Last administered on 04/27/19at 09:25; Start 04/27/19 at 11:30; Stop 04/28/19 at 00:46; Status DC Ondansetron HCl (Zofran) 4 mg 1X ONCE IVP Last administered on 04/27/19at 09:46; Start 04/27/19 at 11:30; Stop 04/27/19 at 12:48; Status DC Heparin Sodium (Porcine) (Heparin Sodium) 10,000 unit STK-MED ONCE .ROUTE ; Start 04/27/19 at 11:40; Stop 04/27/19 at 11:40; Status DC Bivalirudin (Angiomax) 250 mg 1X ONCE IV Last administered on 04/27/19at 09:40; Start 04/27/19 at 11:45; Stop 04/27/19 at 12:48; Status DC Heparin Sodium (Porcine) (Heparin Sodium) 10,000 unit STK-MED ONCE .ROUTE ; Start 04/27/19 at 12:08; Stop 04/27/19 at 12:08; Status DC Info (CONTRAST GIVEN -- Rx MONITORING) 1 each PRN DAILY PRN MC SEE COMMENTS; Start 04/27/19 at 12:30; Stop 04/29/19 at 12:29 Fentanyl Citrate (Fentanyl 2ml Vial) 25 mcg PRN Q4HRS PRN IV PAIN Last administered on 04/28/19at 10:36; Start 04/27/19 at 13:15 Sodium Chloride 1,000 ml @ 50 mls/hr Q20H IV Last administered on 04/27/19at 21:42; Start 04/27/19 at 17:00 Lidocaine HCl (Lidocaine HCl 2% Abboject) 100 mg STK-MED ONCE .ROUTE ; Start 04/28/19 at 09:17; Stop 04/28/19 at 09:18; Status DC Lidocaine HCl (Xylocaine 1% Pf 30ml Vial) 30 ml STK-MED ONCE .ROUTE ; Start 04/28/19 at 09:18; Stop 04/28/19 at 09:18; Status DC Active Scripts Active Reported No Known Medications Prior To Admisstion (Info) Each 1 Each NA Vitals/I & O Vital Sign - Last 24 Hours 04/27/19 04/27/19 04/27/19 04/27/19 11:47 12:00 12:30 14:00 Pulse 89 88 101 94 Resp 21 B/P (MAP) 149/68 (95) 106/70 (82) 123/92 (102) Pulse Ox 100 96 96 96 O2 Delivery NonRebreather Mask Nasal Cannula Nasal Cannula Nasal Cannula O2 Flow Rate 15.0 4.0 4.0 4.0 04/27/19 04/27/19 04/27/19 04/27/19 15:00 16:00 16:00 17:00 Temp 97.3 97.3 Pulse 88 94 97 Resp B/P (MAP) 117/76 (90) 138/88 (105) 144/88 (106) O2 Delivery Nasal Cannula Nasal Cannula Nasal Cannula Room Air O2 Flow Rate 2.0 2.0 04/27/19 04/27/19 04/27/19 04/27/19 17:25 18:00 18:07 19:00 Pulse 85 93 Resp 21 B/P (MAP) 134/89 (104) 108/82 (91) Pulse Ox 96 96 O2 Delivery Nasal Cannula Room Air Nasal Cannula Room Air O2 Flow Rate 2.0 2.0 04/27/19 04/27/19 04/27/19 04/27/19 19:23 20:00 21:00 21:42 Temp 99.1 99.1 Pulse 85 94 Resp 18 20 18 17 B/P (MAP) 97/60 (72) 144/84 (104) Pulse Ox 97 O2 Delivery Room Air Room Air Room Air Room Air 04/27/19 04/27/19 04/27/19 04/28/19 22:00 22:16 23:00 00:00 Temp 98.9 98.9 Pulse 95 94 85 Resp 18 B/P (MAP) 134/93 (107) 115/86 (96) 109/74 (86) Pulse Ox 96 O2 Delivery Room Air Room Air Room Air Room Air 04/28/19 04/28/19 04/28/19 04/28/19 01:00 01:58 02:00 02:30 Pulse 96 90 Resp 20 B/P (MAP) 106/76 (86) 103/76 (85) O2 Delivery Room Air Room Air Room Air Room Air 04/28/19 04/28/19 04/28/19 04/28/19 03:00 04:00 05:00 06:00 Temp 99.0 99.0 Pulse 78 86 84 101 Resp 20 16 B/P (MAP) 135/75 (95) 105/72 (83) 137/84 (101) 125/79 (94) Pulse Ox 96 O2 Delivery Room Air Room Air Room Air Room Air 04/28/19 04/28/19 04/28/19 04/28/19 07:00 08:00 08:00 09:00 Temp 98.7 98.7 Pulse 87 83 90 Resp 22 B/P (MAP) 106/76 (86) 158/85 (109) 161/98 (119) O2 Delivery Room Air Room Air Room Air Room Air 04/28/19 04/28/19 04/28/19 04/28/19 10:00 10:36 11:00 11:04 Pulse 86 80 Resp 16 22 13 B/P (MAP) 116/71 (86) 135/92 (106) Pulse Ox 96 O2 Delivery Room Air Room Air Room Air Room Air O2 Flow Rate 2.0 Intake and Output 04/27/19 04/27/19 04/28/19 15:00 23:00 07:00 Intake Total 100 ml 100 ml 2295.5 ml Output Total 1325 ml 590 ml 680 ml Balance -1225 ml -490 ml 1615.5 ml MAE CRANE MD Apr 28, 2019 11:47
[2019-04-28] MEDS: TICAGRELOR 90 MG TABLET. PO SCH ×2 (12:06→21:20)
[2019-04-28] MEDS: ASPIRIN CHEWABLE 81 MG TABLET. PO SCH (12:06)
--- NOTE | 2019-04-28 13:32 | CARD ---
MR#: [id number] Date of Study: 04/27/2019 Ordering Physician: MAE JUNE, Referring Physician: MAE JUNE, Tech: Arlen Love, RT (R) APPROVED REPORT Procedures Selective coronary angiogram Left heart catheterization Drug-eluting stent placement to an occluded LAD Placement of intra-aortic balloon pump Ventricular fibrillation with successful defibrillation. The patient is a 34-year-old male who was admitted through the emergency room with episodes of chest pain for 3-4 hours. EKG suggested an anterior wall myocardial infarction. Cardiac catheterization was recommended. Risks and benefits were discussed with the patient and he agreed to proceed with the pr ocedure. The patient was brought to the heart catheterization lab and the area of the right femoral artery was prepared in the usual manner with Betadine, sterile draping and local aesthetic. An 18-gauge needle was used to enter the right femoral artery, a wire placed and a 6 Surinamese sheath placed over the wire. Using a J-wire for exchanges a 6 Surinamese Neville catheter was advanced to the ascending aorta. When engaging the right coronary artery it proved to be damping and therefore was removed. As replaced wit h a JR4 diagnostic catheter which was able to engage the vessel for a single injection. This catheter was also passed to the left ventricle and pressure measurements were obtained. Following this a 6 Fr ench JL4 catheter was used to engage the left coronary system and sequential injections in various vi ews were obtained. No clear cut off of the LAD was identified but on imaging the LAD was missing. The refore a 6 Surinamese XB 3.5 guide was used to engage the left coronary system. Angiomax was administered . Initially a PT choice wire was used to probe the area of the proximal LAD but could not find the ve ssel. A PT choice wire was then used for additional probing and was able to enter the occluded vessel . The wire was passed quite distally into the LAD. Initial dilatations were with a 2.5 x 15 Trek balloo n with 3 inflations at 8 deysi for 20 seconds. Following this the distal LAD could be identified and it was a large vessel. A 3.0 x 28 Xience Alpine drug-eluting stent was then deployed in the proximal ve ssel with one inflation at 16 deysi for 16 seconds. This restored flow down a large LAD. The patient wa s monitored following opening of this vessel. Approximately 10 minutes after revascularization was ob tained the patient had episodes of nausea and vomiting. Following this he went to the ventricular fib rillation. He was defibrillated back to sinus rhythm. No chest compressions were performed. The conor ent regained his normal level of consciousness. Following this an a balloon pump was placed in the us ua manner using the pre-existing puncture site. It was placed on one-to-one assist. It was stabilize d in place. The patient was then moved to the intensive care unit in critical condition. Hemodynamics. LV pressure 164/14, 34. Aortic root pressure 160/104. Coronaries. Left main. The left main was a large vessel with a 5% lesion. LAD. The LAD was a very large vessel. It was proximally occluded. There was a 40% lesion the first di agonal. Left circumflex. The left circumflex was a moderate to moderately large dominant vessel. It had a mid 15% lesion. Right coronary artery. The right coronary was a smaller nondominant vessel with a mid 15% lesion. <Conclusion> Acute myocardial infarction secondary to a proximal LAD occlusion. Successful revascularization of the LAD with a 3.0 x 28 drug-eluting stent Mild disease to moderate disease in the remaining vessels. Episode of ventricular fibrillation successfully cardioverted without requiring CPR. Placement of an aortic balloon pump. Fluoro time. 120 min. Contrast. 357 ml Visi Moderate sedation. 120 min. Signed by : Mae June MD Electronically Approved : 04/28/2019 13:32:27
--- NOTE | 2019-04-28 13:50 | PDOC ---
[facility] PROGRESS NOTE Chief Complaint Chief Complaint Massive acute myocardial infarction (troponin 2138) Status post cardiac catheter with stent to proximal LAD Ventricular fibrillation after catheterization with one cardioversion Hypertension History of Present Illness History of Present Illness [id number] Patient seen and examined in the ICU The balloon pump was removed this morning His is present in his good support for him Chart reviewed I called Dr. South, and we discussed the case as well Certainly appreciate Dr. South's rapid intervention yesterday I also called the patient's primary care doctor Dr. Harris We plan to transfer care to him tomorrow Vitals/I&O Vitals/I&O: Vital Signs Date Time Temp Pulse Resp B/P (MAP) Pulse Ox O2 Delivery O2 Flow Rate FiO2 04/28/19 11:04 13 96 Room Air 2.0 04/28/19 11:00 80 135/92 (106) 04/28/19 07:00 98.7 98.7 I & O 04/27/19 04/27/19 04/28/19 15:00 23:00 07:00 Intake Total 100 ml 100 ml 2295.5 ml Output Total 1325 ml 590 ml 680 ml Balance -1225 ml -490 ml 1615.5 ml Physical Exam General: mild distress Heart: Regular rate Abdomen: Normal bowel sounds Extremities: Normal pulses Skin: No rashes, No significant lesion Labs Labs: Laboratory Tests Test 04/27/19 14:05 04/28/19 06:20 Heparin Anti-Xa Act, Unfractionated 0.10 IU/mL (0.30-0.70) White Blood Count 15.5 x10^3/uL (4.0-11.0) Red Blood Count 5.31 x10^6/uL (4.30-5.70) Hemoglobin 14.1 g/dL (13.0-17.5) Hematocrit 43.2 % (39.0-53.0) Mean Corpuscular Volume 81 fL (79-100) Mean Corpuscular Hemoglobin 27 pg (25-35) Mean Corpuscular Hemoglobin Concent 33 g/dL (31-37) Red Cell Distribution Width 17.8 % (11.5-14.5) Platelet Count 177 x10^3/uL (140-400) Neutrophils (%) (Auto) 69 % (31-73) Lymphocytes (%) (Auto) 20 % (24-48) Monocytes (%) (Auto) 10 % (0-9) Eosinophils (%) (Auto) 0 % (0-3) Basophils (%) (Auto) 0 % (0-3) Neutrophils # (Auto) 10.7 x10^3/uL (1.8-7.7) Lymphocytes # (Auto) 3.1 x10^3/uL (1.0-4.8) Monocytes # (Auto) 1.5 x10^3/uL (0.0-1.1) Eosinophils # (Auto) 0.0 x10^3/uL (0.0-0.7) Basophils # (Auto) 0.1 x10^3/uL (0.0-0.2) Sodium Level 142 mmol/L (136-145) Potassium Level 3.4 mmol/L (3.5-5.1) Chloride Level 108 mmol/L (98-107) Carbon Dioxide Level 23 mmol/L (21-32) Anion Gap 11 (6-14) Blood Urea Nitrogen 13 mg/dL (8-26) Creatinine 1.2 mg/dL (0.7-1.3) Estimated GFR (Cockcroft-Gault) 83.9 BUN/Creatinine Ratio 11 (6-20) Glucose Level 116 mg/dL (70-99) Calcium Level 8.4 mg/dL (8.5-10.1) Total Bilirubin 0.8 mg/dL (0.2-1.0) Aspartate Amino Transf (AST/SGOT) 578 U/L (15-37) Alanine Aminotransferase (ALT/SGPT) 160 U/L (16-63) Alkaline Phosphatase 62 U/L (46-116) Troponin I Quantitative 2138.987 ng/mL (0.000-0.055) Total Protein 6.3 g/dL (6.4-8.2) Albumin 3.3 g/dL (3.4-5.0) Albumin/Globulin Ratio 1.1 (1.0-1.7) Triglycerides Level 183 mg/dL (0-150) Cholesterol Level 189 mg/dL (0-200) LDL Cholesterol, Calculated 111 mg/dL (0-100) VLDL Cholesterol, Calculated 37 mg/dL (0-40) Non-HDL Cholesterol Calculated 148 mg/dL (0-129) HDL Cholesterol 41 mg/dL (40-60) Cholesterol/HDL Ratio 4.6 Review of Systems Review of Systems: Complains of depression complains of weakness Assessment and Plan Assessmemt and Plan Problems Medical Problems: (1) STEMI (ST elevation myocardial infarction) Status: Acute Massive acute myocardial infarction (troponin 2139) Status post cardiac catheter with stent to proximal LAD Ventricular fibrillation after catheterization with one cardioversion Hypertension Plan ICU monitoring Trend labs Serial enzymes Serial EKGs When necessary nitroglycerin When necessary morphine Home meds DVT prophylaxis Full code Transfer to Dr. Harris's care tomorrow morning Critical care time 31 minutes Comment Review of Relevant I have reviewed the following items turner (where applicable) has been applied. Medications: Current Medications Medications (Trade) Dose Ordered Sig/Yun Route PRN Reason Start Time Stop Time Status Last Admin Dose Admin Sodium Chloride 1,000 ml @ 50 mls/hr Q20H IV 04/27/19 17:00 04/27/19 21:42 Aspirin (Children'S Aspirin) 81 mg DAILYWBKFT PO 04/28/19 12:00 04/28/19 12:06 Ticagrelor (Brilinta) 90 mg BID PO 04/28/19 12:00 04/28/19 12:06 SHIRLEY MANTILLA K III DO Apr 28, 2019 13:50
--- NOTE | 2019-04-28 19:19 | EKG ---
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
[2019-04-28] MEDS ORDERED: ATORVASTATIN CALCIUM 20 MG TABLET PO SCH (21:00)
[2019-04-28] MEDS: METOPROLOL TART IMMED RELEASE 25 MG TABLET. PO SCH (21:20)
[2019-04-28] MEDS: LORazepam 1 MG TABLET PO PRN (21:20)
[2019-04-29] VITALS (18 sets, daily range): BP systolic 116–164; BP diastolic 64–99
[2019-04-29 04:27] LABS: BASO # 0.1 x10^3/uL (0.0-0.2); BASO % 1 % (0-3); EOS # 0.1 x10^3/uL (0.0-0.7); EOS % 1 % (0-3); LYMPH # 3.9 x10^3/uL (1.0-4.8); LYMPH % 30 % (24-48); MEAN CORPUSCULAR HEMOGLOBIN 27 pg (25-35); MEAN CORPUSCULAR HGB CONC 33 g/dL (31-37); MEAN CORPUSCULAR VOLUME 81 fL (79-100); MONO # 1.3 x10^3/uL (0.0-1.1); MONO % 10 % (0-9); NEUT # 7.5 x10^3/uL (1.8-7.7); NEUT % 58 % (31-73); PLATELET COUNT 164 x10^3/uL (140-400); RED CELL DISTRIBUTION WIDTH 17.7 % (11.5-14.5); WHITE BLOOD COUNT 12.9 x10^3/uL (4.0-11.0)
[2019-04-29 04:44] LABS: CALCIUM 8.8 mg/dL (8.5-10.1); CREATININE 1.3 mg/dL (0.7-1.3); GFR 76.5; MAGNESIUM 1.5 mg/dL (1.8-2.4); POTASSIUM 3.2 mmol/L (3.5-5.1)
[2019-04-29] MEDS: ASPIRIN CHEWABLE 81 MG TABLET. PO SCH (08:42)
[2019-04-29] MEDS: TICAGRELOR 90 MG TABLET. PO SCH ×2 (08:42→21:00)
[2019-04-29] MEDS: METOPROLOL TART IMMED RELEASE 25 MG TABLET. PO SCH ×2 (08:42→21:00)
--- NOTE | 2019-04-29 10:11 | PDOC ---
PROGRESS NOTES Subjective [facility] , denies CP or sob Objective Objective Vital Signs Date Time Temp Pulse Resp B/P (MAP) Pulse Ox O2 Delivery O2 Flow Rate FiO2 04/29/19 09:14 101 18 140/82 (101) Room Air 04/29/19 07:56 2.0 04/29/19 07:30 98.4 98 98.4 Intake and Output 04/29/19 07:00 Intake Total 750 ml Output Total 610 ml Balance 140 ml Intake Oral 750 ml Output Urine Total 610 ml Physical Exam Abdomen: Normal bowel sounds Heart: Regular rate, Normal S1, Normal S2 Extremities: No clubbing, Normal pulses General: Alert, Oriented X3, Cooperative, mild distress HEENT: PERRLA, EOMI Lungs: Clear to auscultation MUSCULOSKELETAL: No deformity Neck: Supple Neuro: Normal gait, Strength at 5/5 X4 ext, Normal tone, Sensation intact Psych/Mental Status: Mood NL Skin: No rashes, No significant lesion Diagnosis Problem List Problems Medical Problems: (1) STEMI (ST elevation myocardial infarction) Status: Acute Assessment Assessment Problems Medical Problems: (1) STEMI (ST elevation myocardial infarction) Status: Acute Massive acute myocardial infarction (troponin 2139) Status post cardiac catheter with stent to proximal LAD ,04/27/2019 Ventricular fibrillation after catheterization with one cardioversion Hypertension,Hyperlipidemia. smoking addiction Strong Family h/o premature CAD pot 3.2, low Plan:replace pot ICU monitoring,transfer to cardiac floor spoke with family members Serial enzymes Serial EKGs When necessary nitroglycerin When necessary morphine Home meds DVT prophylaxis smoking counseling . Plan Plan of Care Problems Medical Problems: (1) STEMI (ST elevation myocardial infarction) Status: Acute Comment Review of Relevant I have reviewed the following items turner (where applicable) has been applied. Labs Laboratory Tests Test 04/29/19 04:15 White Blood Count 12.9 x10^3/uL (4.0-11.0) Red Blood Count 5.20 x10^6/uL (4.30-5.70) Hemoglobin 14.0 g/dL (13.0-17.5) Hematocrit 42.0 % (39.0-53.0) Mean Corpuscular Volume 81 fL (79-100) Mean Corpuscular Hemoglobin 27 pg (25-35) Mean Corpuscular Hemoglobin Concent 33 g/dL (31-37) Red Cell Distribution Width 17.7 % (11.5-14.5) Platelet Count 164 x10^3/uL (140-400) Neutrophils (%) (Auto) 58 % (31-73) Lymphocytes (%) (Auto) 30 % (24-48) Monocytes (%) (Auto) 10 % (0-9) Eosinophils (%) (Auto) 1 % (0-3) Basophils (%) (Auto) 1 % (0-3) Neutrophils # (Auto) 7.5 x10^3/uL (1.8-7.7) Lymphocytes # (Auto) 3.9 x10^3/uL (1.0-4.8) Monocytes # (Auto) 1.3 x10^3/uL (0.0-1.1) Eosinophils # (Auto) 0.1 x10^3/uL (0.0-0.7) Basophils # (Auto) 0.1 x10^3/uL (0.0-0.2) Sodium Level 142 mmol/L (136-145) Potassium Level 3.2 mmol/L (3.5-5.1) Chloride Level 107 mmol/L (98-107) Carbon Dioxide Level 26 mmol/L (21-32) Anion Gap 9 (6-14) Blood Urea Nitrogen 17 mg/dL (8-26) Creatinine 1.3 mg/dL (0.7-1.3) Estimated GFR (Cockcroft-Gault) 76.5 Glucose Level 97 mg/dL (70-99) Calcium Level 8.8 mg/dL (8.5-10.1) Magnesium Level 1.5 mg/dL (1.8-2.4) Medications Current Medications Aspirin (Children'S Aspirin) 81 mg DAILYWBKFT PO Last administered on 04/29/19at 08:42; Start 04/28/19 at 12:00 Atorvastatin Calcium (Lipitor) 20 mg QHS PO Last administered on 04/28/19at 2 1:20; Start 04/28/19 at 21:00 Lorazepam (Ativan) 1 mg PRN Q6HRS PRN PO ANXIETY / AGITATION Last administered on 04/28/19at 21:20; Start 04/28/19 at 15:15 Metoprolol Tartrate (Lopressor) 25 mg BID PO Last administered on 04/29/19at 08:42; Start 04/28/19 at 21:00 Ticagrelor (Brilinta) 90 mg BID PO Last administered on 04/29/19at 08:42; Start 04/28/19 at 12:00 Vitals/I & O Vital Sign - Last 24 Hours 04/28/19 04/28/19 04/28/19 04/28/19 10:36 11:00 11:04 12:00 Temp 98.7 98.7 Pulse 80 82 Resp 20 B/P (MAP) 135/92 (106) 148/94 (112) Pulse Ox 96 O2 Delivery Room Air Room Air Room Air Room Air O2 Flow Rate 2.0 04/28/19 04/28/19 04/28/19 04/28/19 12:00 13:00 14:00 15:00 Pulse 86 84 98 Resp 23 B/P (MAP) 154/94 (114) 148/95 (112) 163/88 (113) O2 Delivery Room Air Room Air Room Air Room Air 04/28/19 04/28/19 04/28/19 04/28/19 16:00 16:00 17:00 18:00 Temp 98.7 98.7 Pulse 106 105 90 Resp 24 B/P (MAP) 142/89 (106) 141/77 (98) 156/87 (110) O2 Delivery Room Air Room Air Room Air Room Air 04/28/19 04/28/19 04/28/19 04/28/19 19:00 20:00 21:00 21:20 Temp 99.6 99.6 Pulse 100 88 102 99 Resp 21 B/P (MAP) 155/77 (103) 152/93 (112) 139/70 (93) 139/70 Pulse Ox 98 O2 Delivery Room Air Room Air Room Air 04/28/19 04/28/19 04/29/19 04/29/19 22:00 23:00 00:00 01:00 Temp 99.0 99.0 Pulse 91 95 90 85 Resp 21 12 24 B/P (MAP) 150/99 (116) 152/106 (121) 147/92 (110) 136/74 (94) Pulse Ox 95 O2 Delivery Room Air Room Air Room Air Room Air 3/1604/29/19 04/29/19 04/29/19 02:00 03:00 04:00 05:00 Temp 99.1 99.1 Pulse 98 97 95 80 Resp B/P (MAP) 164/87 (112) 150/94 (112) 129/82 (98) 125/71 (89) Pulse Ox 96 O2 Delivery Room Air Room Air Room Air Room Air 04/29/19 04/29/19 04/29/19 04/29/19 06:00 07:30 07:56 08:31 Temp 98.4 98.4 Pulse 100 90 100 Resp B/P (MAP) 135/70 (91) 138/70 (92) 146/99 (115) Pulse Ox 98 O2 Delivery Room Air Room Air Room Air Room Air O2 Flow Rate 2.0 04/29/19 04/29/19 08:42 09:14 Pulse 100 101 Resp 18 B/P (MAP) 146/99 140/82 (101) O2 Delivery Room Air Intake and Output 04/28/19 04/28/19 04/29/19 15:00 23:00 07:00 Intake Total 250 ml 500 ml 0 ml Output Total 360 ml 250 ml Balance -110 ml 500 ml -250 ml FEROZ CARTER MD Apr 29, 2019 10:11
--- NOTE | 2019-04-29 10:13 | CARD ---
MR#: [id number] Date of Study: 04/29/2019 Ordering Physician: MAE CRANE, Referring Physician: MAE CRANE, Tech: Irish Arredondo [facility] APPROVED REPORT EXAM: Two-dimensional and M-mode echocardiogram with Doppler and color Doppler. Other Information Quality : Good INDICATION S/P Myocardial Infarction/Stent 2D DIMENSIONS RVDd2.0 (2.9-3.5cm)Left Atrium(2D)3.3 (1.6-4.0cm) IVSd1.5 (0.7-1.1cm)Aortic Root(2D)2.7 (2.0-3.7cm) LVDd4.2 (3.9-5.9cm)LVOT Diameter2.0 (1.8-2.4cm) PWd1.4 (0.7-1.1cm)LVDs3.2 (2.5-4.0cm) FS (%) 20.0 %SV37.3 ml LVEF(%)40.0 (>50%) Aortic Valve AoV Peak Tigre.120.1cm/sAoV VTI19.7cm AO Peak GR.5.8mmHgLVOT VTI 18.96cm AO Mean GR.3mmHgAVA (VTI)3.00cm2 Mitral Valve MV E Fumoofiz98.6cm/sMV DECEL [id number] MV A Zyklbume74.6cm/sE/A Ratio1.0 TDI Lateral E' P. V9.27cm/sMedial E' P. V7.27cm/s E/Lateral E'7.3E/Medial E'9.3 Pulmonary Vein S1 Vxtujnyi12.1cm/sS2 Wsfbiwjc63.25cm/s D2 Ohyvawbu06.2cm/s LEFT VENTRICLE The left ventricle is normal size. There is moderate concentric left ventricular hypertrophy. Left ve ntricle systolic function is moderate to severely impaired. EF 30-35% There is akinesis in the anteri or wall, apex and septum. Transmitral Doppler flow pattern is Grade I-abnormal relaxation pattern. RIGHT VENTRICLE The right ventricle is normal size. The right ventricular systolic function is normal. ATRIA The left atrium size is normal. The right atrium size is normal. The interatrial septum is intact wit h no evidence for an atrial septal defect or patent foramen ovale as noted on 2-D or Doppler imaging. AORTIC VALVE The aortic valve is normal in structure and function. Doppler and Color Flow revealed no significant aortic regurgitation. There is no significant aortic valvular stenosis. MITRAL VALVE The mitral valve is normal in structure and function. There is no evidence of mitral valve prolapse. There is no mitral valve stenosis. Doppler and Color Flow revealed no mitral valve regurgitation note d. TRICUSPID VALVE The tricuspid valve is normal in structure and function. Doppler and Color Flow revealed no tricuspid valve regurgitation noted. There is no tricuspid valve stenosis. PULMONIC VALVE Doppler and Color Flow revealed trace pulmonic valvular regurgitation. There is no pulmonic valvular stenosis. GREAT VESSELS The aortic root is normal in size. The ascending aorta is normal in size. The IVC is normal in size a nd collapses >50% with inspiration. PERICARDIAL EFFUSION There is no evidence of significant pericardial effusion. Critical Notification Critical Value: No <Conclusion> Left ventricle systolic function is moderate to severely impaired. EF 30-35% There is moderate concentric left ventricular hypertrophy. There is akinesis in the anterior wall, apex and septum. Signed by : Sam Minor, Electronically Approved : 04/29/2019 10:13:44
[2019-04-29] MEDS ORDERED: POTASSIUM CHLORIDE 20 MEQ TABLET.ER. PO ONE (10:15)
--- NOTE | 2019-04-29 10:45 | NUR ---
SS following for discharge planning. SS reviewed pt chart. Pt is from home with spouse and is currently on room air. SS will continue to follow for discharge planning.
--- NOTE | 2019-04-29 11:26 | PDOC ---
[facility] [employer] 04/29/19 1126: CARDIO Progress Notes Date and Time Date of Service 04/29/19 Time of Evaluation 1115 Subjective Subjective: No Chest Pain, No shortness of breath, No Palpitations, No Dizziness Vitals Vitals Vital Signs Date Time Temp Pulse Resp B/P (MAP) Pulse Ox O2 Delivery O2 Flow Rate FiO2 04/29/19 10:13 82 18 122/76 (91) Room Air 04/29/19 07:56 2.0 04/29/19 07:30 98.4 98 98.4 Weight Weight [ ] Input and Output Intake and Output Intake and Output 04/29/19 07:00 Intake Total 750 ml Output Total 610 ml Balance 140 ml Intake Oral 750 ml Output Urine Total 610 ml Laboratory Labs Laboratory Tests Test 04/29/19 04:15 White Blood Count 12.9 x10^3/uL (4.0-11.0) Red Blood Count 5.20 x10^6/uL (4.30-5.70) Hemoglobin 14.0 g/dL (13.0-17.5) Hematocrit 42.0 % (39.0-53.0) Mean Corpuscular Volume 81 fL (79-100) Mean Corpuscular Hemoglobin 27 pg (25-35) Mean Corpuscular Hemoglobin Concent 33 g/dL (31-37) Red Cell Distribution Width 17.7 % (11.5-14.5) Platelet Count 164 x10^3/uL (140-400) Neutrophils (%) (Auto) 58 % (31-73) Lymphocytes (%) (Auto) 30 % (24-48) Monocytes (%) (Auto) 10 % (0-9) Eosinophils (%) (Auto) 1 % (0-3) Basophils (%) (Auto) 1 % (0-3) Neutrophils # (Auto) 7.5 x10^3/uL (1.8-7.7) Lymphocytes # (Auto) 3.9 x10^3/uL (1.0-4.8) Monocytes # (Auto) 1.3 x10^3/uL (0.0-1.1) Eosinophils # (Auto) 0.1 x10^3/uL (0.0-0.7) Basophils # (Auto) 0.1 x10^3/uL (0.0-0.2) Sodium Level 142 mmol/L (136-145) Potassium Level 3.2 mmol/L (3.5-5.1) Chloride Level 107 mmol/L (98-107) Carbon Dioxide Level 26 mmol/L (21-32) Anion Gap 9 (6-14) Blood Urea Nitrogen 17 mg/dL (8-26) Creatinine 1.3 mg/dL (0.7-1.3) Estimated GFR (Cockcroft-Gault) 76.5 Glucose Level 97 mg/dL (70-99) Calcium Level 8.8 mg/dL (8.5-10.1) Magnesium Level 1.5 mg/dL (1.8-2.4) Physical Exam HEENT: Neck Supple W Full Motion Chest: Symmetric LUNGS: Clear to Auscultation Heart: S1S2, RRR, other (LVAD super loud) Abdomen: Soft N/T Neurology: alert, oriented, follow commands Assessment Assessment 1. STEMI. Large proximally occluded LAD. S/p PCI/LEATHA Peak troponin of 2138. IABP removed 04/27. Has been stable overnight. 2. VF arrest; s/p PCI in [employer]. Cardioverted in [employer] [employer]. Loaded with Amiodarone therapy. Has had some brief bursts of NSVT, otherwise has been maintaining SR. 3. Chronic systolic CHF with ICM; Echo with LVEF 30-35%. Clinically compensated 4. Hyperlipidemia; statin 5. Hpokalemia, hypomagnesemia 6. Tobaccoism; discussed/encouraged cessation. Is ready to quit. Recommendations Start oral Amiodarone for rhythm maintenance Start lisinopril with depressed LV systolic function Will arrange LifeVest given sustained VF. Replace Mg, K Secondary prevention measures including DAPT with ASA/Brilinta Risk stratification modification Cardiac rehab referral MAE CRANE MD 04/29/19 1645: CARDIO Progress Notes Assessment Assessment Patient seen and examined 1. STEMI. Large proximally occluded LAD. S/p PCI/LEATHA Peak troponin of 2138. IABP removed 04/27. Has been stable overnight. Continuing medication and increasing activity. 2. VF arrest; s/p PCI in [employer] [employer]. Cardioverted in [employer] [employer]. Loaded with Amiodarone therapy. Has had some brief bursts of NSVT, otherwise has been maintaining SR. 3. Chronic systolic CHF with ICM; Echo with LVEF 30-35%. Clinically compensated. We will place a life vest. 4. Hyperlipidemia; statin 5. Hpokalemia, hypomagnesemia . Replace and monitor. 6. Tobaccoism; discussed/encouraged cessation. Is ready to quit. CORA LAZAR APRN Apr 29, 2019 11:26 MAE CRANE MD Apr 29, 2019 16:45
[2019-04-29] MEDS ORDERED: MAGNESIUM SULFATE 2GM 50 ML IV ONE (11:30)
[2019-04-29] MEDS: AMIODARONE HCL 200 MG TABLET. PO SCH (12:10)
[2019-04-29] MEDS: LORazepam 1 MG TABLET PO PRN (12:11)
[2019-04-29] MEDS: LISINOPRIL 5 MG TABLET. PO SCH (12:11)
[2019-04-29] MEDS ORDERED: ASPI-630 PO (13:59)
[2019-04-29] MEDS ORDERED: AMIO200T4 PO (13:59)
[2019-04-29] MEDS ORDERED: TICA90TA PO (13:59)
[2019-04-29] MEDS ORDERED: METO50TA4 PO (13:59)
[2019-04-29] MEDS ORDERED: ATOR40TA59 PO (13:59)
[2019-04-29] MEDS ORDERED: LISI-338 PO (13:59)
--- NOTE | 2019-04-29 14:21 | EKG ---
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
[2019-04-29] MEDS ORDERED: METOPROLOL SUCC 24HR ER 50 MG TAB.ER.24H. PO SCH (15:00)
--- NOTE | 2019-04-29 16:20 | NUR ---
Pt transferred to room 246. Report called to TRACEY Haider.
[2019-04-29] MEDS: ATORVASTATIN CALCIUM 40 MG TABLET. PO SCH (20:59)
[2019-04-30 02:53] VITALS: BP 121/69
[2019-04-30 04:57] LABS: BASO % 0 % (0-3); EOS # 0.2 x10^3/uL (0.0-0.7); EOS % 2 % (0-3); HEMATOCRIT 42.2 % (39.0-53.0); HEMOGLOBIN 13.8 g/dL (13.0-17.5); LYMPH # 4.3 x10^3/uL (1.0-4.8); LYMPH % 37 % (24-48); MEAN CORPUSCULAR HEMOGLOBIN 27 pg (25-35); MEAN CORPUSCULAR HGB CONC 33 g/dL (31-37); MEAN CORPUSCULAR VOLUME 82 fL (79-100); MONO # 1.4 x10^3/uL (0.0-1.1); MONO % 12 % (0-9); NEUT # 5.6 x10^3/uL (1.8-7.7); NEUT % 49 % (31-73); PLATELET COUNT 167 x10^3/uL (140-400); RED BLOOD COUNT 5.17 x10^6/uL (4.30-5.70); RED CELL DISTRIBUTION WIDTH 17.8 % (11.5-14.5); WHITE BLOOD COUNT 11.5 x10^3/uL (4.0-11.0)
[2019-04-30 05:17] LABS: CALCIUM 8.6 mg/dL (8.5-10.1); CREATININE 1.2 mg/dL (0.7-1.3); GFR 83.9; POTASSIUM 3.9 mmol/L (3.5-5.1)
[2019-04-30 07:15] VITALS: BP 122/73
[2019-04-30] MEDS: AMIODARONE HCL 200 MG TABLET. PO SCH (08:25)
[2019-04-30] MEDS: ASPIRIN CHEWABLE 81 MG TABLET. PO SCH (08:26)
[2019-04-30] MEDS: LISINOPRIL 5 MG TABLET. PO SCH (08:26)
[2019-04-30] MEDS: TICAGRELOR 90 MG TABLET. PO SCH ×2 (08:26→20:07)
[2019-04-30] MEDS ORDERED: METOPROLOL SUCC 24HR ER 50 MG TAB.ER.24H. PO SCH (09:00)
--- NOTE | 2019-04-30 10:18 | PDOC ---
PROGRESS NOTES Subjective Subjective feels better want to go home Objective Objective Vital Signs Date Time Temp Pulse Resp B/P (MAP) Pulse Ox O2 Delivery O2 Flow Rate FiO2 04/30/19 08:26 88 122/73 04/30/19 08:00 Room Air 2.0 04/30/19 07:15 98.3 21 99 98.3 Intake and Output 04/30/19 07:00 Intake Total 1280 ml Output Total 502 ml Balance 778 ml Intake Oral 1280 ml Output Urine Total 502 ml # Voids 3 Physical Exam Abdomen: Normal bowel sounds Heart: Regular rate, Normal S1, Normal S2 Extremities: No clubbing, Normal pulses General: Alert, Oriented X3, Cooperative, mild distress HEENT: PERRLA, EOMI Lungs: Clear to auscultation MUSCULOSKELETAL: No deformity Neck: Supple Neuro: Normal gait, Strength at 5/5 X4 ext, Normal tone, Sensation intact Psych/Mental Status: Mood NL Skin: No rashes, No significant lesion Diagnosis Problem List Problems Medical Problems: (1) STEMI (ST elevation myocardial infarction) Status: Acute Assessment Assessment Problems Medical Problems: (1) STEMI (ST elevation myocardial infarction) Status: Acute Massive acute myocardial infarction (troponin 2139) Status post cardiac catheter with stent to proximal LAD ,04/27/2019 Ventricular fibrillation after catheterization with one cardioversion Hypertension,Hyperlipidemia. smoking addiction [employer] Family h/o premature CAD pot replaced. 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 STEMI. Large proximally occluded LAD. S/p PCI/LEATHA Peak troponin of 2138. IABP removed 04/27. Has been stable overnight. Continuing medication and increasing activity. 2. 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 Loaded with Amiodarone therapy. Has had some brief bursts of NSVT, otherwise has been maintaining SR. 3. Chronic systolic CHF with ICM; Echo with LVEF 30-35%. Clinically compensated. We will place a life vest. 4. Hyperlipidemia; statin 5. Hpokalemia, hypomagnesemia . Replaced . 6. Tobaccoism; discussed/encouraged cessation.PT Is ready to quit. Plan Plan of Care Problems Medical Problems: (1) STEMI (ST elevation myocardial infarction) Status: Acute Comment Review of Relevant I have reviewed the following items turner (where applicable) has been applied. Labs Laboratory Tests Test 04/30/19 03:33 White Blood Count 11.5 x10^3/uL (4.0-11.0) Red Blood Count 5.17 x10^6/uL (4.30-5.70) Hemoglobin 13.8 g/dL (13.0-17.5) Hematocrit 42.2 % (39.0-53.0) Mean Corpuscular Volume 82 fL (79-100) Mean Corpuscular Hemoglobin 27 pg (25-35) Mean Corpuscular Hemoglobin Concent 33 g/dL (31-37) Red Cell Distribution Width 17.8 % (11.5-14.5) Platelet Count 167 x10^3/uL (140-400) Neutrophils (%) (Auto) 49 % (31-73) Lymphocytes (%) (Auto) 37 % (24-48) Monocytes (%) (Auto) 12 % (0-9) Eosinophils (%) (Auto) 2 % (0-3) Basophils (%) (Auto) 0 % (0-3) Neutrophils # (Auto) 5.6 x10^3/uL (1.8-7.7) Lymphocytes # (Auto) 4.3 x10^3/uL (1.0-4.8) Monocytes # (Auto) 1.4 x10^3/uL (0.0-1.1) Eosinophils # (Auto) 0.2 x10^3/uL (0.0-0.7) Basophils # (Auto) 0.0 x10^3/uL (0.0-0.2) Sodium Level 144 mmol/L (136-145) Potassium Level 3.9 mmol/L (3.5-5.1) Chloride Level 109 mmol/L (98-107) Carbon Dioxide Level 24 mmol/L (21-32) Anion Gap 11 (6-14) Blood Urea Nitrogen 17 mg/dL (8-26) Creatinine 1.2 mg/dL (0.7-1.3) Estimated GFR (Cockcroft-Gault) 83.9 Glucose Level 80 mg/dL (70-99) Calcium Level 8.6 mg/dL (8.5-10.1) Thyroid Stimulating Hormone (TSH) 6.953 uIU/mL (0.358-3.74) Medications Current Medications Amiodarone HCl (Cordarone) 400 mg DAILY PO Last administered on 04/30/19at 08:25; Start 04/29/19 at 12:00 Atorvastatin Calcium (Lipitor) 40 mg QHS PO Last administered on 04/29/19at 20:59; Start 04/29/19 at 21:00 Lisinopril (Prinivil) 5 mg DAILY PO Last administered on 04/30/19at 08:26; Start 04/29/19 at 11:30 Magnesium Sulfate 50 ml @ 25 mls/hr 1X ONCE IV Last administered on 04/29/19at 13:23; Start 04/29/19 at 11:30; Stop 04/29/19 at 13:29; Status DC Metoprolol Succinate (Toprol Xl) 50 mg DAILY PO ; Start 04/29/19 at 15:00; Stop 04/29/19 at 15:43; Status DC Metoprolol Succinate (Toprol Xl) 50 mg DAILY PO Last administered on 04/30/19at 08:26; Start 04/30/19 at 09:00 Vitals/I & O Vital Sign - Last 24 Hours 04/29/19 04/29/19 04/29/19 04/29/19 11:00 12:10 12:10 12:11 Temp 98.7 98.7 Pulse 87 87 87 Resp 17 B/P (MAP) 126/86 (99) 127/86 127/86 Pulse Ox 98 O2 Delivery Room Air Room Air O2 Flow Rate 2.0 04/29/19 04/29/19 04/29/19 04/29/19 12:20 14:00 15:30 17:30 Temp 98.5 97.7 98.5 97.7 Pulse 90 90 94 100 Resp 20 20 20 20 B/P (MAP) 127/86 (100) 116/78 (91) 124/73 (90) 133/81 (98) Pulse Ox 97 98 97 96 O2 Delivery Room Air Room Air Room Air Room Air 04/29/19 04/29/19 04/29/19 04/29/19 19:55 20:00 21:00 23:40 Temp 98.9 98.2 98.9 98.2 Pulse 99 99 88 Resp 18 18 B/P (MAP) 137/82 (100) 137/82 119/64 (82) Pulse Ox 98 97 O2 Delivery Room Air Room Air Room Air 04/30/19 04/30/19 04/30/19 04/30/19 02:53 07:15 08:00 08:25 Temp 98.3 98.3 98.3 98.3 Pulse 92 88 88 Resp 21 21 B/P (MAP) 121/69 (86) 122/73 (89) 122/73 Pulse Ox 96 99 O2 Delivery Room Air Room Air Room Air O2 Flow Rate 2.0 04/30/19 04/30/19 08:26 08:26 Pulse 88 88 B/P (MAP) 122/73 122/73 Intake and Output 04/29/19 04/29/19 04/30/19 15:00 23:00 07:00 Intake Total 580 ml 200 ml 500 ml Output Total 500 ml 2 ml Balance 80 ml 198 ml 500 ml FEROZ CARTER MD Apr 30, 2019 10:18
[2019-04-30 10:39] VITALS: BP 116/63
--- NOTE | 2019-04-30 12:05 | PDOC ---
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 04/30/19 1205: CARDIO Progress Notes Date and Time Date of Service 04/30/19 Time of Evaluation 1200 Subjective Subjective: No Chest Pain, No shortness of breath, No Palpitations, No Dizziness Vitals Vitals Vital Signs Date Time Temp Pulse Resp B/P (MAP) Pulse Ox O2 Delivery O2 Flow Rate FiO2 04/30/19 10:39 98.2 76 17 116/63 (80) 100 Room Air 98.2 04/30/19 08:00 2.0 Weight Weight [ ] Input and Output Intake and Output Intake and Output 04/30/19 07:00 Intake Total 1280 ml Output Total 502 ml Balance 778 ml Intake Oral 1280 ml Output Urine Total 502 ml # Voids 3 Laboratory Labs Laboratory Tests Test 04/30/19 03:33 White Blood Count 11.5 x10^3/uL (4.0-11.0) Red Blood Count 5.17 x10^6/uL (4.30-5.70) Hemoglobin 13.8 g/dL (13.0-17.5) Hematocrit 42.2 % (39.0-53.0) Mean Corpuscular Volume 82 fL (79-100) Mean Corpuscular Hemoglobin 27 pg (25-35) Mean Corpuscular Hemoglobin Concent 33 g/dL (31-37) Red Cell Distribution Width 17.8 % (11.5-14.5) Platelet Count 167 x10^3/uL (140-400) Neutrophils (%) (Auto) 49 % (31-73) Lymphocytes (%) (Auto) 37 % (24-48) Monocytes (%) (Auto) 12 % (0-9) Eosinophils (%) (Auto) 2 % (0-3) Basophils (%) (Auto) 0 % (0-3) Neutrophils # (Auto) 5.6 x10^3/uL (1.8-7.7) Lymphocytes # (Auto) 4.3 x10^3/uL (1.0-4.8) Monocytes # (Auto) 1.4 x10^3/uL (0.0-1.1) Eosinophils # (Auto) 0.2 x10^3/uL (0.0-0.7) Basophils # (Auto) 0.0 x10^3/uL (0.0-0.2) Sodium Level 144 mmol/L (136-145) Potassium Level 3.9 mmol/L (3.5-5.1) Chloride Level 109 mmol/L (98-107) Carbon Dioxide Level 24 mmol/L (21-32) Anion Gap 11 (6-14) Blood Urea Nitrogen 17 mg/dL (8-26) Creatinine 1.2 mg/dL (0.7-1.3) Estimated GFR (Cockcroft-Gault) 83.9 Glucose Level 80 mg/dL (70-99) Calcium Level 8.6 mg/dL (8.5-10.1) Thyroid Stimulating Hormone (TSH) 6.953 uIU/mL (0.358-3.74) Physical Exam HEENT: Neck Supple W Full Motion Chest: Symmetric LUNGS: Clear to Auscultation Heart: S1S2, RRR, other (LVAD super loud) Abdomen: Soft N/T Neurology: alert, oriented, follow commands Assessment Assessment 1. STEMI. Large proximally occluded LAD. S/p PCI/LEATHA Peak troponin of 2138. IABP removed 04/27. Has been since. 2. 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 Loaded with Amiodarone therapy. Has had some brief bursts of NSVT, otherwise has been maintaining SR. 3. Chronic systolic CHF with ICM; Echo with LVEF 30-35%. Clinically compensated 4. Hyperlipidemia; statin 5. Hpokalemia, hypomagnesemia; replaced 6. Tobaccoism; discussed/encouraged cessation. Is ready to quit. 6. Hypothyroidism; as per PCP Recommendations Amiodarone for rhythm maintenance HF optimization with BB, ACEi LifeVest given sustained VF. Secondary prevention measures including DAPT with ASA/Brilinta Risk stratification modification Cardiac rehab referral May discharge from a CV standpoint and f/u in our office with Dr. South as scheduled. MELISSA ALEX MD 04/30/19 1800: CARDIO Progress Notes Plan Plan Pt. seen and examined. 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 Discussed need to continue antiplatelet therapy Supportive care. F/u with Dr. South. Thanks CORA LAZAR APRN Apr 30, 2019 12:05 MELISSA ALEX MD Apr 30, 2019 18:00
[2019-04-30 14:29] VITALS: BP 106/55
[2019-04-30 19:47] VITALS: BP 115/61
[2019-04-30] MEDS: ATORVASTATIN CALCIUM 40 MG TABLET. PO SCH (20:07)
--- NOTE | 2019-04-30 20:45 | NUR ---
[employer] Vest educated patient on vest and placed vest on patient. Patient discharged via WC to front door. at his side. A/O x 4. VSS. All belongings in hand along with discharge orders.
--- NOTE | 2019-05-02 15:07 | PDOC ---
Provider Note Provider Note Discharge summary dictated.#[id number]. FEROZ CARTER MD May 02, 2019 15:07
--- NOTE | 2019-05-02 16:27 | DS ---
DATE OF DISCHARGE: 04/30/2019 REASON FOR ADMISSION TO THE HOSPITAL: STEMI, chest pain, acute myocardial infarction. PROCEDURES DONE: 1. Cardiac catheterization and stent placement. 2. Echocardiogram. HOSPITAL COURSE: The patient is a 34-year-old male. The patient was having severe chest pain, was brought to the hospital, was found to have acute anterior wall GA. The patient was taken to cardiac cath. The patient had a stent placed in LAD, a drug-eluting stent. The patient had an episode of ventricular fibrillation. After the procedure, the patient was cardioverted and placement of an aortic balloon pump. The patient had an echocardiogram, which shows 30% ejection fraction, left ventricular hypertrophy and akinesia in the anterior apex and septum. The patient was started on amiodarone for cardiac arrhythmias. The patient was given LifeVest because of cardiac arrhythmias and the patient was also put on aspirin and Brilinta. Smoking counseling was done. FINAL DIAGNOSES: 1. Acute myocardial infarction secondary to STEMI. Patient had a LAD stent placed, drug-eluting stent. 2. Systolic heart failure secondary to myocardial infarction. Ejection fraction 35%. 3. Ventricular fibrillation arrest, status post LINE AND FRAME POLER, was cardioverted. 4. Hypertension. 5. Hyperlipidemia. 6. Smoking. PLAN: At this time was discharged home and a LifeVest outpatient to evaluate systolic heart failure with echocardiogram in 9 months to see if he needs a defibrillator or not. In the meantime, continue medical management and recommended not to drive. 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 FEROZ CARTER MD DR: MARK/sameer JOB#: [id number] / [id number]
== END 2019-04-30 20:45 | disposition home or self-care (01) | DRG 270 ==
LOC: ER 07:31 → 1 WEST ICU 08:35 → 2 SOUTH 04-29 16:26
PROVIDERS: ADMIT Internal Medicine; ATTEND Internal Medicine
PROC: 4A023N7 Measurement of Cardiac Sampling and Pressure, Left Heart, Percutaneous Approach (ICD-10-PCS; principal; 2019-04-27)
PROC: 027034Z Dilation of Coronary Artery, One Artery with Drug-eluting Intraluminal Device, Percutaneous Approach (ICD-10-PCS; 2019-04-27)
PROC: B2151ZZ Fluoroscopy of Left Heart using Low Osmolar Contrast (ICD-10-PCS; 2019-04-27)
PROC: 5A02210 Assistance with Cardiac Output using Balloon Pump, Continuous (ICD-10-PCS; 2019-04-27)
DX: I21.3 ST elevation (STEMI) myocardial infarction of unspecified site (principal); R65.11 Systemic inflammatory response syndrome (SIRS) of non-infectious origin with acute organ dysfunction; I46.2 Cardiac arrest due to underlying cardiac condition; I49.01 Ventricular fibrillation; I47.2 Ventricular tachycardia; I50.22 Chronic systolic (congestive) heart failure; I10 Essential (primary) hypertension; E03.9 Hypothyroidism, unspecified; E78.5 Hyperlipidemia, unspecified; E83.42 Hypomagnesemia; F17.200 Nicotine dependence, unspecified, uncomplicated; I11.0 Hypertensive heart disease with heart failure; I25.10 Atherosclerotic heart disease of native coronary artery without angina pectoris; I25.2 Old myocardial infarction; Z82.49 Family history of ischemic heart disease and other diseases of the circulatory system; Z98.61 Coronary angioplasty status; Z79.899 Other long term (current) drug therapy
CPT/HCPCS: 33967; 36415; 71045; 80048; 80053; 80061; 80076; 83735; 84443; 84484; 85025; 85520; 85610; 85730; 92941; 93005; 93306; 93458; 96374; 96375; 99152; 99153; C1725; C1769; C1874; C1887; C1892; J0282; J0583; J1265; J1644; J2250; J2405; J3010; J3475; J3490; J7030; J7060; Q9967; 99285-25; C1713; G0378

== ENCOUNTER → 2019-08-12 | Outpatient (CLI) | payer BC ==
[~2019-08-12] MED LIST changes: +AMIO200T4 PO; +ASPI-630 PO; +ATOR40TA59 PO; +LISI-338 PO; +METO50TA4 PO; +TICA90TA PO
--- NOTE | 2019-08-12 11:47 | CARD ---
MR#: [id number] Date of Study: 08/12/2019 Ordering Physician: MAE JUNE, Referring Physician: MAE JUNE, Tech: Irish Arredondo [facility] APPROVED REPORT EXAM: Two-dimensional and M-mode echocardiogram with Doppler and color Doppler. Other Information Quality : Good INDICATION Ischemic Cardiomyopathy, Life Vest 2D DIMENSIONS RVDd2.4 (2.9-3.5cm)Left Atrium(2D)3.8 (1.6-4.0cm) IVSd0.8 (0.7-1.1cm)Aortic Root(2D)2.9 (2.0-3.7cm) LVDd5.2 (3.9-5.9cm)LVOT Diameter1.9 (1.8-2.4cm) PWd0.8 (0.7-1.1cm)LVDs4.1 (2.5-4.0cm) FS (%) 19.7 %SV51.0 ml Aortic Valve AoV Peak Tigre.110.0cm/sAoV VTI24.3cm AO Peak GR.4.8mmHgLVOT Peak Tigre.105.2cm/s AO Mean GR.3mmHgAVA (VMAX)2.83cm2 ANTONIO (VTI)2.80cm2 Mitral Valve MV E Bevjypdb38.7cm/sMV DECEL [id number] MV A Cqxjuqdt98.4cm/sE/A Ratio1.2 Tricuspid Valve TR P. Jhlyvygf847qn/sRAP BCOZQSLA4exKy TR Peak Gr.87zpBjKDVA97hwVm Pulmonary Vein S1 Fhlcxtfj99.2cm/sD2 Gucatogv04.6cm/s LEFT VENTRICLE The Left Ventricle is borderline dilated. There is normal left ventricular wall thickness. Left ventr icle systolic function is severely impaired. The Ejection Fraction is 20-25%. There is akinesis in th e mid-anteroseptal, mid septal and mid anterior pan. The left ventricular apex and apical lateral w all is akinetic. RIGHT VENTRICLE The right ventricle is normal size. The right ventricular systolic function is normal. ATRIA The left atrium size is normal. The right atrium size is normal. The interatrial septum is intact wit h no evidence for an atrial septal defect or patent foramen ovale as noted on 2-D or Doppler imaging. AORTIC VALVE The aortic valve is normal in structure and function. Doppler and Color Flow revealed no significant aortic regurgitation. There is no significant aortic valvular stenosis. MITRAL VALVE The mitral valve is normal in structure and function. There is no evidence of mitral valve prolapse. There is no mitral valve stenosis. Doppler and Color-flow revealed trace to mild mitral regurgitation . TRICUSPID VALVE The tricuspid valve is normal in structure and function. Doppler and Color Flow revealed trace tricus pid regurgitation. The PA pressure was estimated at 34 mmHg. There is no tricuspid valve stenosis. PULMONIC VALVE The pulmonary valve is normal in structure and function. Doppler and Color Flow revealed trace pulmon ic valvular regurgitation. There is no pulmonic valvular stenosis. GREAT VESSELS The aortic root is normal in size. The ascending aorta is not well seen. The IVC is normal in size an d collapses >50% with inspiration. PERICARDIAL EFFUSION There is no evidence of significant pericardial effusion. Critical Notification Critical Value: No <Conclusion> The Left Ventricle is borderline dilated. Left ventricle systolic function is severely impaired. The Ejection Fraction is 20-25%. There is akinesis in the mid-anteroseptal, mid septal and mid anterior pan. The left ventricular apex and apical lateral wall is akinetic. Doppler and Color Flow revealed no significant aortic regurgitation. There is no significant aortic valvular stenosis. Doppler and Color-flow revealed trace to mild mitral regurgitation. Doppler and Color Flow revealed trace tricuspid regurgitation. The PA pressure was estimated at 34 mmHg. Signed by : Mae June MD Electronically Approved : 08/12/2019 11:46:57
== END | disposition home or self-care (01) ==
LOC: ECHO 08:51
PROVIDERS: ATTEND Internal Medicine Cardiovascular Disease
DX: I34.0 Nonrheumatic mitral (valve) insufficiency (principal); I25.5 Ischemic cardiomyopathy
CPT/HCPCS: 93306

== ENCOUNTER → 2019-08-29 | Outpatient (CLI) | payer BC | END | disposition home or self-care (01) | LOC: LAB 13:24 | PROVIDERS: ATTEND Internal Medicine Cardiovascular Disease | DX: Z11.59 Encounter for screening for other viral diseases (principal) | CPT/HCPCS: U0003-CS ==

== ENCOUNTER 2019-09-02 11:03 | Observation (INO) | payer BC ==
[~2019-09-02] VITALS: Ht 180.3 cm; Wt 109.6 kg
[~2019-09-02 11:03] MED LIST changes: +IV RINGERS,LACTATED 1000ML 1,000 ML IV SCH
[2019-09-02] MEDS ORDERED: SACU1TAB PO (11:23)
[2019-09-02] MEDS ORDERED: BACITRACIN 50,000 UNIT in IV NORMAL SALINE 250ML 250 ML IRR ONE (11:30)
[2019-09-02] MEDS ORDERED: KETAMINE HCL IN NACL, ISO-OSM 50 MG/5 ML SYRINGE ONE (11:40)
[2019-09-02] MEDS ORDERED: MIDAZOLAM HCL/PF 2 MG/2 ML VIAL. ONE (11:40)
--- NOTE | 2019-09-02 11:40 | EKG ---
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
[2019-09-02] MEDS ORDERED: PHENYLEPHRINE in 0.9% NACL PF 1 MG/10 ML SYRINGE. IV ONE (11:41)
[2019-09-02] MEDS ORDERED: ePHEDrine PF IN SALINE 50 MG/10 ML SYRINGE. IV ONE (11:41)
[2019-09-02] MEDS ORDERED: LIDOCAINE 2% PF 5 ML VIAL. ONE (11:41)
[2019-09-02] MEDS ORDERED: PROPOFOL 10 MG/ML (20ML) VIAL. IV ONE (11:41)
[2019-09-02 11:48] LABS: CALCIUM 8.9 mg/dL (8.5-10.1); CREATININE 1.4 mg/dL (0.7-1.3); GFR 70.2
[2019-09-02 11:50] VITALS: BP 119/57
[2019-09-02 11:58] LABS: HEMATOCRIT 44.8 % (39.0-53.0); HEMOGLOBIN 14.4 g/dL (13.0-17.5); RED BLOOD COUNT 5.52 x10^6/uL (4.30-5.70); RED CELL DISTRIBUTION WIDTH 17.6 % (11.5-14.5); WHITE BLOOD COUNT 7.1 x10^3/uL (4.0-11.0)
[2019-09-02 12:08] LABS: PROTHROMBIN TIME PATIENT 12.2 SEC (11.7-14.0)
[2019-09-02] MEDS ORDERED: LIDOCAINE 2%/EPI 1:100,000 20 ML VIAL. IJ ONE (12:30)
[2019-09-02] MEDS ORDERED: LIDOCAINE 2%/EPI 1:100,000 20 ML VIAL. ONE (12:46)
--- NOTE | 2019-09-02 14:09 | CARD ---
MR#: [id number] Date of Study: 09/02/2019 Ordering Physician: NORAH ROBERSON, Referring Physician: NORAH ROBERSON, Tech: APPROVED REPORT EXAM Implantation of Biotronik automated implantable cardioverter defibrillator with defibrillation thresh olds measurement at the time of implantation MODERATE SEDATION ADMINISTERED BY ANESTHESIA FLUORO TIME: 1.4 MIN DOSE: 8.1 GYCM2 INDICATIONS Primary prevention of sudden cardiac in a patient with severe ischemic cardiomyopathy, chronic systolic heart failure with LVEF 25%. PROCEDURE After explaining the risks, benefits, and alternative options, informed consent was obtained from the patient. The patient was brought to the cardiac catheterization lab and the left chest and shoulder were prepp ed and draped in the usual fashion. 30 cc of 2% lidocaine was infiltrated into the skin and subcutaneous tissues for local anesthesia. A n incision was made over the left infraclavicular fossa and using blunt dissection and cautery, a poc ket was created. Venous access was obtained the left subclavian vein and 8 Urdu sheath was inserte d. A Biotronik bipolar active fixation right ventricular lead model Plexa Pro MRI S DX 65, serial #[id number] was advanced under fluoroscopic guidance and the tip was positioned in the right ventricular apex . The lead was secured into place and was attached to a Biotronik AICD generator model Acticor 7 VR- T DX serial #[id number]. This was placed in the pocket that was subsequently closed in 3 layers. Hemo stasis was secured. Ventricular fibrillation was then induced to check the defibrillation threshold. Patient successfull y converted to sinus rhythm with 15 J shock therapy with a shock impedance of 79 ohms. The right angie tricular lead showed a sensing amplitude of 18 mV, impedance of 750 ohms and a threshold of 0.9 V. T he atrial bipole of the DX lead showed a sensing amplitude of 5 mV. Patient tolerated the procedure well. There were no immediate complications. CONCLUSION Successful implantation of Biotronik automated implantable cardioverter defibrillator for primary pre vention of sudden cardiac in a patient with severe ischemic cardiomyopathy with EF 25%. Defibr illation thresholds were measured at the time of implantation. Signed by : Norah Roberson, Electronically Approved : 09/02/2019 14:08:50
[2019-09-02] MEDS ORDERED: fentaNYL PF VIAL 100 MCG/2 ML VIAL ONE (14:38)
--- NOTE | 2019-09-02 14:41 | RAD ---
Examination: PORTABLE CHEST 1V History: Reason: POST ICD PLACEMENT / Spl. Instructions: / History: Comparison/Correlation: 04/27/2019 AP view of the chest Findings: Portable upright frontal view of the chest was obtained. Single lead left-sided ICD is present. Lead terminates at the expected site of the right ventricle. Heart size and pulmonary vasculature are normal. No infiltrate or pleural effusion. No pneumothorax. Bony structures are unremarkable. Impression: Interval placement of a left-sided single-lead ICD which is intact and in place on the basis of the frontal view provided. No pneumothorax. Electronically signed by: Bubba Martin MD (09/02/2019 2:38 PM) [facility]
[2019-09-02] MEDS: fentaNYL PF VIAL 100 MCG/2 ML VIAL IVP PRN ×3 (14:44→15:41)
[2019-09-02 16:45] VITALS: BP 109/64
[2019-09-02] MEDS ORDERED: ACETAMINOPHEN 325 MG TABLET. PO PRN (17:45)
[2019-09-02 18:00] VITALS: BP 118/68
[2019-09-02] MEDS: HYDROcodone/APAP 5/325MG 1 TAB TABLET PO PRN (18:37)
[2019-09-02 19:00] VITALS: BP 98/58
[2019-09-02] MEDS: TICAGRELOR 90 MG TABLET. PO SCH (21:12)
[2019-09-02] MEDS: SACUBITRIL/VALSARTAN 24/26MG TABLET. PO SCH (21:12)
[2019-09-02] MEDS: MORPHINE SULFATE 2 MG/ML VIAL. IV PRN (22:47)
[2019-09-02 23:00] VITALS: BP 116/62
[2019-09-03] MEDS: MORPHINE SULFATE 2 MG/ML VIAL. IV PRN ×5 (00:53→13:13)
[2019-09-03 03:19] VITALS: BP_SYST 114
[2019-09-03 07:00] VITALS: BP 118/71
[2019-09-03] MEDS ORDERED: ASPIRIN CHEWABLE 81 MG TABLET. PO SCH (08:00)
--- NOTE | 2019-09-03 08:24 | RAD ---
EXAM: CHEST 2 VIEWS. HISTORY: Pacemaker placement. COMPARISON: 09/02/2019. FINDINGS: Frontal and lateral views of the chest are obtained. A left-sided pacer/defibrillator has its lead in the right ventricle. There are no confluent infiltrates. There is no pneumothorax or pleural effusion. The heart is not enlarged. IMPRESSION: 1. Left pacemaker/defibrillator in expected position. No pneumothorax. Electronically signed by: Orlando Ruiz MD (09/03/2019 8:20 AM) [id number]
[2019-09-03] MEDS: TICAGRELOR 90 MG TABLET. PO SCH (08:51)
[2019-09-03] MEDS: SACUBITRIL/VALSARTAN 24/26MG TABLET. PO SCH (08:51)
[2019-09-03] MEDS: HYDROcodone/APAP 5/325MG 1 TAB TABLET PO PRN ×2 (08:53→17:27)
[2019-09-03] MEDS ORDERED: METOPROLOL SUCC 24HR ER 50 MG TAB.ER.24H. PO SCH (09:00)
[2019-09-03] MEDS ORDERED: AMIODARONE HCL 200 MG TABLET. PO SCH (09:00)
[2019-09-03] MEDS ORDERED: ATORVASTATIN CALCIUM 40 MG TABLET. PO SCH (09:00)
[2019-09-03 11:00] VITALS: BP 126/71
--- NOTE | 2019-09-03 12:45 | DISCH ---
DISCHARGE INSTRUCTIONS Condition on Discharge Condition on Discharge: Stable Activity After Discharge Activity Instructions for Disc: Activity as tolerated Bathing Instructions: Shower-keep dressing dry, No Tub Bath until see Lifting Instructions after Dis: No heavy lifting, No pulling or pushing Exercise Instruction after Dis: Exercise per Card. Rehab Driving Instructions after Dis: Do not drive Weight Bearing Status after Di: As tolerated Diet after Discharge Diet after Discharge: Cardiac Diet Texture: Regular Swallowing Supervision: None needed Wound Incision Care Wound/Incision Care: Keep wound/cast CDI Contacting the DRMerari after DC Call your doctor for: If your condition worsens Treatment/Equipment after DC Adaptive Equipment Issued: None CORA LAZAR APRN Sep 03, 2019 12:45
[2019-09-03] MEDS ORDERED: MORPHINE SULFATE 2 MG/ML VIAL. IV PRN (13:00)
--- NOTE | 2019-09-03 13:22 | NUR ---
SS following for discharge planning. SS reviewed pt chart and discussed with pt RN. Pt is from home with spouse and is currently on room air. Pt had AICD placed on 09/02/2019. Discharge order on the chart for home with self care.
[2019-09-03 15:00] VITALS: BP 131/72
--- NOTE | 2019-09-03 16:35 | PDOC3 ---
Discharge Summary Visit Information Date of Admission: Sep 02, 2019 Date of Discharge: Sep 03, 2019 Admitting Diagnosis Comment: Ischemic cardiomyopathy Chronic systolic CHF CAD Final Diagnosis Ischemic cardiomyopathy Chronic systolic CHF CAD Brief Hospital Course Allergies Allergies Coded Allergies Type Severity Reaction Last Updated Verified strawberry Allergy Intermediate 10/22/18 No Vital Signs Vital Signs Date Time Temp Pulse Resp B/P (MAP) Pulse Ox O2 Delivery O2 Flow Rate FiO2 09/03/19 15:00 97.1 68 18 131/72 (91) 97 Room Air 97.1 09/02/19 18:37 2.0 Lab Results Laboratory Tests Test 09/02/19 11:25 White Blood Count 7.1 x10^3/uL (4.0-11.0) Red Blood Count 5.52 x10^6/uL (4.30-5.70) Hemoglobin 14.4 g/dL (13.0-17.5) Hematocrit 44.8 % (39.0-53.0) Mean Corpuscular Volume 81 fL (79-100) Mean Corpuscular Hemoglobin 26 pg (25-35) Mean Corpuscular Hemoglobin Concent 32 g/dL (31-37) Red Cell Distribution Width 17.6 % (11.5-14.5) Platelet Count 257 x10^3/uL (140-400) Prothrombin Time 12.2 SEC (11.7-14.0) Prothromb Time International Ratio 0.9 (0.8-1.1) Sodium Level 140 mmol/L (136-145) Potassium Level 4.0 mmol/L (3.5-5.1) Chloride Level 105 mmol/L (98-107) Carbon Dioxide Level 25 mmol/L (21-32) Anion Gap 10 (6-14) Blood Urea Nitrogen 16 mg/dL (8-26) Creatinine 1.4 mg/dL (0.7-1.3) Estimated GFR (Cockcroft-Gault) 70.2 Glucose Level 109 mg/dL (70-99) Calcium Level 8.9 mg/dL (8.5-10.1) Brief Hospital Course Mr. Zhao is a 34 old male, with a history of CAD, chronic systolic CHF, and ischemic cardiomyopathy with an LVEF 25% who presented electively for AICD implantation for primary prevention of sudden cardiac . Patient underwent successful implantation of Biotronik automated implantable cardioverter defibrillator. Was monitor overnight without acute complication. Postoperative device check and chest XRAY were within normal limits. Incision well approximated. Steri-strips intact. Swelling noted around device insertion site, pressure dressing applied. Patietn incrructed to call our office if further swelling is noted. No ecchymosis present. Patient will return to our office in 1 week for wound check. He was discharge in stable condition. Patient seen and examined 09/03/19. Agree with APPLICATION SUPPORT's assessment and plan. Patient with chronic systolic heart failure, LVEF 25% underwent successful AICD implantation for primary prevention of sudden cardiac . His defibrillation thresholds were measured as well. He remained hemodynamically stable during his hospital stay. His incision looked good, chest x-ray did not show any pneumothorax and device check showed normal function prior to discharge. Follow-up with our office as scheduled. Discharge Information Condition at Discharge: Improved Follow Up: Weeks (1 week with RN for wound check) Disposition/Orders: D/C to Home Scheduled Amiodarone Hcl (Amiodarone Hcl) 200 Mg Tablet, 400 MG PO DAILY for antiarrhythmic for 30 Days, #60 Ref 2 Prescribed by: CORA LAZAR APRN on 04/29/191358 Last Taken: Unknown Dose on 09/02/19 Last Action: Continued on 09/02/191354 by NORAH BENAVIDES Aspirin (Aspirin) 81 Mg Tab.chew, 81 MG PO DAILYWBKFT for coronary artery disease for 30 Days, #30 Ref 2 Prescribed by: CORA LAZAR APRN on 04/29/191358 Last Action: Continued on 09/02/191354 by NORAH BENAVIDES Atorvastatin Calcium (Atorvastatin Calcium) 40 Mg Tablet, 1 TAB PO DAILY for cholesterol for 30 Days, #30 Ref 2 Prescribed by: CORA LAZAR APRN on 04/29/191358 Last Taken: Unknown Dose on 09/02/19 Last Action: Continued on 09/02/191354 by NORAH BENAVIDES Metoprolol Succinate (Toprol XL) 50 Mg Tab.er.24h, 50 MG PO DAILY for coronary artery disease, CHF for 30 Days, #30 Ref 2 Prescribed by: CORA LAZAR APRN on 04/29/191358 Last Taken: Unknown Dose on 09/02/19 Last Action: Continued on 09/02/191354 by NORAH BENAVIDES Sacubitril/Valsartan (Entresto 24 mg-26 mg Tablet) 1 Each Tablet, 1 EACH PO BID for congestive heart failure, (Reported) Entered as Reported by: JIAN KABA on 09/02/19 1123 Last Taken: Unknown Dose on 09/02/19 Last Action: Continued on 09/02/19 135 by NORAH BENAVIDES Ticagrelor (Brilinta) 90 Mg Tablet, 90 MG PO BID for coronary artery disease for 30 Days, #60 Ref 2 Prescribed by: CORA LAZAR APRN on 04/29/19 1359 Last Taken: Unknown Dose on 09/02/19 Last Action: Continued on 09/02/191354 by NORAH BENAVIDES Patient Instructions Patient Instructions Must know & what to expect after device implant: 1. Your surgical dressing should be removed prior to discharge from the hospital, but allow the steri- strips to fall off naturally. 2. Activity restrictions: DO NOT raise arm above shoulder level, lift anything heavier than a gallon of milk, and no push or pull motions such as vacuuming/lawn mowing, no swinging motions (golf), etc for 4 weeks. 3. It is OK to use a cell phone or other electronic devices just be sure you do not store it in a breast pocket on the side where the device was placed. 4. Device will be interrogated prior to your discharge from the hospital and then every 3 months for defibrillators and every 6 months for pacemakers. You may be asked to have your device checked remotely from home as well, but this will depend on your particular physicians preference. 5. You may remove the arm immobilizer the day after device placement. Wear the arm immobilizer/splint at night (during sleep times) for 2 week to prevent unintended arm movement that can cause lead dislodgement. 6. Do not drive for one week as the task of driving may lead to unintended arm motion that may cause lead dislodgement. The seatbelt will also rub against the incision site & cause irritation. 7. It is our recommendation that you utilize Tylenol at home for pain control. You need to call our office if you are having uncontrollable pain at the incision site. 8. Keep your incision clean and dry. It is OK to shower. DO NOT submerge in bath, pool, or hot tub, until cleared by your doctor, as this could lead to increase risk of infection.. It is OK to use regular soap just do not scrub the incision site. Water spray from shower should not directly hit the incision. Be sure to blot dry not rub. 9. Inspect your incision daily. If you notice any increased redness, swelling, or drainage, or if you start running a fever, call the office immediately. The number is [phone]. 10. For women, if you need to protect against irritation from the bra straps, you can place a piece of gauze over the incision site for cushion. Please be sure to tape it loosely to allow air to the site & remove the gauze when you remove the bra. 11. Be sure to carry your device identification information card in your wallet/purse at all times. 12. It is OK to go through security at the airport with your device, but be sure to let the TSA know prior to proceeding as the security settings change depending on varying factors. Please do whatever is requested by security at that time. 13. Some of the newer devices may be MRI compatible but, currently, the use of these devices is not widespread, so you likely will not be able to have an MRI. Please clarify this with your physician. Special instructions for defibrillator patients: If your device recognizes a rhythm that requires treatment with a shock, you will most likely feel the shock. This is usually not a subtle feeling and it is uncomfortable. Please follow these steps if you receive a shock: Call the office if you receive one shock. Go to the emergency room if you receive two consecutive shocks- please have someone drive you & call 911 if nobody is available- DO NOT drive yourself. Call 911 if you receive more than 2 consecutive shocks. If at any time, you feel lightheaded or dizzy/faint, stop what you are doing & lie down immediately. If you are driving, get to the side of the road quickly, turn your car off & call 911 on your cell phone. DO NOT continue to drive as this may cause an accident that seriously injures yourself &/or others. Call the office at [phone] for any questions or concerns. Justicifation of Admission Dx: Justifications for Admission: Justification of Admission Dx: Yes CHF: Cardiac Arrhythmias CORA LAZAR APRN Sep 03, 2019 16:35 NORAH BENAVIDES MD Sep 04, 2019 11:52
--- NOTE | 2019-09-03 17:45 | NUR ---
Discharge Note: DAKOTA JAVIER Discharge instructions and discharge home medications reviewed with Patient and family and a copy given. All questions have been answered and understanding verbalized. Follow up instructions provided to patient. Patient's defibrillator site clean, dry, and intact. Left arm immobilizer in place. The following instructions and handouts were given: defibrillator after care Discontinued lines and drains: Peripheral IV intact. Patient discharged to Home or Self Care with Family Member via Wheelchair
== END 2019-09-03 17:45 | disposition home or self-care (01) ==
LOC: SURG 11:03 → 2 NORTH 17:51 → INTOOBSV 17:51
PROVIDERS: ADMIT Internal Medicine Cardiovascular Disease; ATTEND Internal Medicine Cardiovascular Disease
DX: I25.5 Ischemic cardiomyopathy (principal); I50.22 Chronic systolic (congestive) heart failure; I25.10 Atherosclerotic heart disease of native coronary artery without angina pectoris
CPT/HCPCS: 33249; 36415; 71045; 71046; 80048; 85027; 85610; 93005; 93641; 96365; 96375; 96376; C1895; G0378; G0379; J0690; J2250; J2270; J2370; J2704; J3010; J3490; J7050; J7030